=== PATIENT | female | born 1970 | race Caucasian/White ===

== ENCOUNTER → 2018-07-14 | Outpatient (CLI) | payer MEDICARE, OTHER ==
[~2018-07-14] MED LIST: CALCITROL PO; GABA300C10 PO; LAMO200T2 PO; OXYC-307 PO
[2018-07-14 11:37] LABS: ALBUMIN 3.3 g/dL (3.4-5.0); ANION GAP 8 mmol/L (5-15); CALCIUM 8.1 mg/dL (8.5-10.1); CHLORIDE 103 mmol/L (98-107)
[2018-07-14 11:41] LABS: ALANINE AMINOTRANSFERASE 17 U/L (12-78); ALKALINE PHOSPHATASE 100 U/L (45-117); BILIRUBIN,TOTAL 0.5 mg/dL (0.2-1.0); CREATININE 2.92 mg/dL (0.55-1.02); TOTAL PROTEIN 8.9 g/dL (6.4-8.2)
[2018-07-14 12:26] LABS: BASOPHILS # (AUTO) 0.02 x10^3/uL (0-0.1); BASOPHILS % (AUTO) 0 % (0-1); EOSINOPHILS # (AUTO) 0.14 x10^3/uL (0-0.4); EOSINOPHILS % (AUTO) 3 % (1-7); LYMPHOCYTES # (AUTO) 1.02 x10^3/uL (1-3.4); LYMPHOCYTES % (AUTO) 17 % (22-44); MD NO; MEAN CORPUSCULAR HEMOGLOBIN 31.8 pg (27.0-34.8); MEAN CORPUSCULAR HGB CONC 32.9 g/dL (32.4-35.8); MEAN CORPUSCULAR VOLUME 96.8 fL (80-100); MEAN PLATELET VOLUME 8.8 fL (7.4-10.4); MONOCYTES # (AUTO) 0.49 x10^3/uL (0.2-0.8); MONOCYTES % (AUTO) 8 % (2-9); NEUTROPHILS # (AUTO) 4.16 x10^3/uL (1.8-6.8); NEUTROPHILS % (AUTO) 71 % (42-75); PLATELET COUNT 161 x10^3/uL (130-400); RED BLOOD COUNT 3.33 x10^6/uL (3.82-5.3); RED CELL DISTRIBUTION WIDTH 18.5 % (9.6-15.2)
[2018-07-14 12:38] LABS: INTERNATIONAL NORMALIZED RATIO 0.98 (0.93-1.1); PROTHROMBIN TIME 10.1 Seconds (9.6-11.5)
== END | disposition home or self-care (01) ==
LOC: STAR 10:18
PROVIDERS: ATTEND Surgery
DX: Z01.812 Encounter for preprocedural laboratory examination (principal); Z88.0 Allergy status to penicillin; Z88.1 Allergy status to other antibiotic agents
CPT/HCPCS: 36415; 80053; 85025; 85610; 85730; 93005

== ENCOUNTER 2018-07-18 08:31 | Day surgery (SDC) | payer MEDICARE, OTHER ==
[~2018-07-18] VITALS: Ht 172.7 cm; Wt 72.0 kg
[2018-07-18 08:45] VITALS: BP 131/77
[2018-07-18] MEDS ORDERED: BUPIVACAINE/PF-EPI 0.5% 1:200K ONE (09:54)
[2018-07-18] MEDS ORDERED: THROMBIN 5,000 UNIT VIAL TP ONE (09:55)
[2018-07-18] MEDS ORDERED: HEPARIN 1,000 UNITS/ML, 10ML ONE (09:55)
[2018-07-18] MEDS ORDERED: FENTANYL PF 100 MCG/2ML ONE (10:32)
[2018-07-18] MEDS ORDERED: MIDAZOLAM 1 MG/ML, 2ML ONE (10:32)
[2018-07-18] MEDS ORDERED: ONDANSETRON 2MG/ML, 2ML ONE (10:34)
[2018-07-18] MEDS ORDERED: PROPOFOL 10 MG/ML, 20ML ONE (10:34)
[2018-07-18] MEDS ORDERED: CEFAZOLIN 1,000 MG ONE (10:34)
[2018-07-18] MEDS ORDERED: DEXAMETHASONE 4 MG/ML, 1ML ONE (10:46)
[2018-07-18] MEDS ORDERED: EPHEDRINE 50 MG/ML, 1ML ONE ×2 (10:57)
[2018-07-18] MEDS ORDERED: FENTANYL PF 100 MCG/2ML IV PRN (11:00)
[2018-07-18] MEDS ORDERED: ONDANSETRON 2MG/ML, 2ML IV PRN (11:00)
[2018-07-18] MEDS ORDERED: MEPERIDINE/PF 25MG/0.5ML IVPush PRN (11:00)
[2018-07-18] MEDS ORDERED: ONDANSETRON ODT 8 MG PO PRN (11:00)
[2018-07-18] MEDS ORDERED: hydrALAzine 20 MG/ML, 1ML IV PRN (11:00)
[2018-07-18] MEDS ORDERED: LORazepam 2 MG/ML, 1ML IVPush PRN (11:00)
[2018-07-18] MEDS ORDERED: PROMETHAZINE 25 MG/ML, 1ML IV PRN (11:00)
[2018-07-18] MEDS ORDERED: ALBUTEROL SULFATE 2.5 MG/3 ML NPPB PRN (11:00)
[2018-07-18] MEDS ORDERED: MIDAZOLAM 1 MG/ML, 2ML IV PRN (11:00)
[2018-07-18] MEDS ORDERED: MORPHINE SULFATE 4 MG/ML, 1ML IVPush PRN (11:00)
[2018-07-18] MEDS ORDERED: ACETAMINOPHEN 325 MG TABLET PO PRN (11:00)
[2018-07-18] MEDS ORDERED: HYDROmorphone 1 MG/ML, 1ML IV PRN (11:00)
[2018-07-18] MEDS ORDERED: OXYcodone 5 MG/5 ML ORAL.SOL UDC PO PRN (11:00)
[2018-07-18] MEDS ORDERED: EPHEDRINE 50 MG/ML, 1ML IVPush PRN (11:00)
[2018-07-18] MEDS ORDERED: PROMETHAZINE 12.5 MG SUPP PR PRN (11:00)
[2018-07-18] MEDS ORDERED: LABETALOL 5MG/ML, 20ML IV PRN (11:00)
[2018-07-18] MEDS ORDERED: OXYcodone 5 MG/5 ML ORAL.SOL UDC ONE (12:14)
[2018-07-18 13:17] VITALS: BP 156/77
== END 2018-07-18 16:35 | disposition home or self-care (01) ==
LOC: 4NOR 08:31 → OR 08:31
PROVIDERS: ATTEND Surgery
DX: I12.0 Hypertensive chronic kidney disease with stage 5 chronic kidney disease or end stage renal disease (principal); N18.6 End stage renal disease; J44.9 Chronic obstructive pulmonary disease, unspecified; E03.9 Hypothyroidism, unspecified; Z88.0 Allergy status to penicillin; Z88.8 Allergy status to other drugs, medicaments and biological substances; D64.9 Anemia, unspecified; F41.9 Anxiety disorder, unspecified; F32.9 Major depressive disorder, single episode, unspecified; F17.210 Nicotine dependence, cigarettes, uncomplicated; E89.0 Postprocedural hypothyroidism; Z90.49 Acquired absence of other specified parts of digestive tract; Z98.890 Other specified postprocedural states; Z90.710 Acquired absence of both cervix and uterus; Z93.3 Colostomy status
CPT/HCPCS: 36415; 36821; 84132; J0690; J1100; J1644; J2250; J2405; J2704; J3010; G0378

== ENCOUNTER 2018-08-07 14:27 | Observation (INO) | payer MEDICARE, OTHER ==
[2018-08-06 12:54] LABS: BASOPHILS # (AUTO) 0.02 x10^3/uL (0-0.1); BASOPHILS % (AUTO) 0 % (0-1); EOSINOPHILS # (AUTO) 0.14 x10^3/uL (0-0.4); EOSINOPHILS % (AUTO) 2 % (1-7); LYMPHOCYTES # (AUTO) 1.13 x10^3/uL (1-3.4); LYMPHOCYTES % (AUTO) 19 % (22-44); MD NO; MEAN CORPUSCULAR HEMOGLOBIN 32.3 pg (27.0-34.8); MEAN CORPUSCULAR HGB CONC 33.7 g/dL (32.4-35.8); MEAN CORPUSCULAR VOLUME 95.7 fL (80-100); MEAN PLATELET VOLUME 8.2 fL (7.4-10.4); MONOCYTES # (AUTO) 0.41 x10^3/uL (0.2-0.8); MONOCYTES % (AUTO) 7 % (2-9); NEUTROPHILS # (AUTO) 4.14 x10^3/uL (1.8-6.8); NEUTROPHILS % (AUTO) 71 % (42-75); PLATELET COUNT 149 x10^3/uL (130-400); RED BLOOD COUNT 3.85 x10^6/uL (3.82-5.3); RED CELL DISTRIBUTION WIDTH 17.9 % (9.6-15.2)
[2018-08-06 13:08] LABS: ANION GAP 9 mmol/L (5-15); CALCIUM 9.1 mg/dL (8.5-10.1); CHLORIDE 104 mmol/L (98-107); CREATININE 2.95 mg/dL (0.55-1.02)
[~2018-08-07] VITALS: Ht 172.7 cm; Wt 74.0 kg
[~2018-08-07 14:27] MED LIST changes: +CALC0.5C9 PO; +CEFAZOLIN 1,000 MG ONE; +DEXAMETHASONE 4 MG/ML, 1ML ONE; +DOCU-180 PO; +DOXY100C2 PO; +GUAI200T3 PO; +ONDANSETRON 2MG/ML, 2ML ONE; +PROPOFOL 10 MG/ML, 20ML ONE; +ROCURONIUM 10MG/ML,5ML ONE
[2018-08-07 14:52] VITALS: BP 122/80
[2018-08-07] MEDS ORDERED: SODIUM CHLORIDE 0.9% 1,000 ML IV SCH (14:58)
[2018-08-07] MEDS ORDERED: PROTAMINE SULFATE 10 MG/ML, 5ML ONE (16:23)
[2018-08-07] MEDS ORDERED: HEPARIN 1,000 UNITS/ML, 10ML ONE (16:23)
[2018-08-07] MEDS ORDERED: SODIUM BICARBONATE 1 MEQ/ML, 50ML VIAL ONE (16:23)
[2018-08-07] MEDS ORDERED: BUPIVACAINE/PF-EPI 0.5% 1:200K ONE (16:23)
[2018-08-07] MEDS ORDERED: LIDOCAINE/MPF 2%-EPI 1:200K, 20 ML ONE (16:23)
[2018-08-07] MEDS ORDERED: MIDAZOLAM 1 MG/ML, 2ML ONE (16:26)
[2018-08-07] MEDS ORDERED: FENTANYL PF 100 MCG/2ML ONE ×2 (16:26→19:37)
[2018-08-07] MEDS ORDERED: THROMBIN 20,000 UNIT VIAL TP ONE ×2 (17:39→17:49)
[2018-08-07] MEDS ORDERED: OXYcodone 5 MG/5 ML ORAL.SOL UDC PO PRN (18:00)
[2018-08-07] MEDS ORDERED: HYDROmorphone 1 MG/ML, 1ML IV PRN (18:00)
[2018-08-07] MEDS ORDERED: ALBUTEROL SULFATE 2.5 MG/3 ML NPPB PRN (18:00)
[2018-08-07] MEDS ORDERED: LABETALOL 5MG/ML, 20ML IV PRN (18:00)
[2018-08-07] MEDS ORDERED: hydrALAzine 20 MG/ML, 1ML IV PRN (18:00)
[2018-08-07] MEDS ORDERED: HALOPERIDOL 5 MG/ML IV PRN (18:00)
[2018-08-07] MEDS ORDERED: ACETAMINOPHEN 650 MG/20.3 ML UDC PO PRN (19:30)
[2018-08-07] MEDS ORDERED: ONDANSETRON 2MG/ML, 2ML IVPush PRN (19:30)
[2018-08-07] MEDS ORDERED: OXYcodone 5 MG/5 ML ORAL.SOL UDC ONE (19:37)
[2018-08-07] MEDS: FENTANYL PF 100 MCG/2ML IV PRN ×2 (19:42→19:53)
[2018-08-07 20:31] VITALS: BP 97/59
[2018-08-07] MEDS: morphine SULFATE 10 MG/ML, 1ML IV PRN ×2 (21:01→21:42)
[2018-08-07] MEDS: SODIUM CHLORIDE FLUSH 10ML SYR IVF SCH (21:02)
[2018-08-07 21:30] VITALS: BP 99/55
[2018-08-08] VITALS (7 sets, daily range): BP systolic 100–163; BP diastolic 54–100
[2018-08-08] MEDS: morphine SULFATE 10 MG/ML, 1ML IV PRN ×5 (01:43→14:01)
[2018-08-08] MEDS: SODIUM CHLORIDE FLUSH 10ML SYR IVF SCH (09:00)
== END 2018-08-08 16:51 | disposition home or self-care (01) ==
LOC: OR 14:27 → ORIP 20:35 → 4WST 20:38
PROVIDERS: ADMIT Surgery; ATTEND Surgery
DX: T82.868A Thrombosis due to vascular prosthetic devices, implants and grafts, initial encounter (principal); N18.6 End stage renal disease; I12.0 Hypertensive chronic kidney disease with stage 5 chronic kidney disease or end stage renal disease; D63.1 Anemia in chronic kidney disease; F43.10 Post-traumatic stress disorder, unspecified; E21.3 Hyperparathyroidism, unspecified; N25.0 Renal osteodystrophy; N25.81 Secondary hyperparathyroidism of renal origin; Y83.2 Surgical operation with anastomosis, bypass or graft as the cause of abnormal reaction of the patient, or of later complication, without mention of misadventure at the time of the procedure; Z86.718 Personal history of other venous thrombosis and embolism; Z90.710 Acquired absence of both cervix and uterus; Z99.2 Dependence on renal dialysis
CPT/HCPCS: 36415; 36830; 80048; 85025; 93005; 96374; 96376; C1729; C1757; C1760; C1768; G0378; J0690; J1100; J1644; J2250; J2270; J2405; J2704; J2720; J3010; J7030; J3490

== ENCOUNTER 2018-08-10 14:13 | Emergency (ER) | payer MEDICARE, OTHER ==
[~2018-08-10 14:13] MED LIST changes: -CEFAZOLIN 1,000 MG ONE; -DEXAMETHASONE 4 MG/ML, 1ML ONE; -ONDANSETRON 2MG/ML, 2ML ONE; -PROPOFOL 10 MG/ML, 20ML ONE; -ROCURONIUM 10MG/ML,5ML ONE
[2018-08-10 14:54] LABS: BASOPHILS # (AUTO) 0.02 x10^3/uL (0-0.1); BASOPHILS % (AUTO) 0 % (0-1); EOSINOPHILS # (AUTO) 0.13 x10^3/uL (0-0.4); EOSINOPHILS % (AUTO) 2 % (1-7); LYMPHOCYTES # (AUTO) 1.37 x10^3/uL (1-3.4); LYMPHOCYTES % (AUTO) 22 % (22-44); MD NO; MEAN CORPUSCULAR HEMOGLOBIN 32.6 pg (27.0-34.8); MEAN CORPUSCULAR HGB CONC 33.6 g/dL (32.4-35.8); MEAN CORPUSCULAR VOLUME 97.1 fL (80-100); MEAN PLATELET VOLUME 8.5 fL (7.4-10.4); MONOCYTES # (AUTO) 0.39 x10^3/uL (0.2-0.8); MONOCYTES % (AUTO) 6 % (2-9); NEUTROPHILS # (AUTO) 4.36 x10^3/uL (1.8-6.8); NEUTROPHILS % (AUTO) 69 % (42-75); PLATELET COUNT 158 x10^3/uL (130-400); RED BLOOD COUNT 2.94 x10^6/uL (3.82-5.3); RED CELL DISTRIBUTION WIDTH 17.5 % (9.6-15.2)
[2018-08-10 14:59] LABS: INTERNATIONAL NORMALIZED RATIO 0.93 (0.93-1.1); PROTHROMBIN TIME 9.7 Seconds (9.6-11.5)
[2018-08-10 15:01] LABS: ALANINE AMINOTRANSFERASE 13 U/L (12-78); ALBUMIN 3.3 g/dL (3.4-5.0); ANION GAP 8 mmol/L (5-15); CALCIUM 8.1 mg/dL (8.5-10.1); CHLORIDE 107 mmol/L (98-107); CREATININE 4.16 mg/dL (0.55-1.02)
[2018-08-10 15:03] LABS: ALKALINE PHOSPHATASE 102 U/L (45-117); BILIRUBIN,TOTAL 0.3 mg/dL (0.2-1.0); TOTAL PROTEIN 8.4 g/dL (6.4-8.2)
[2018-08-10] MEDS ORDERED: ALBU6.7H PO (15:21)
[2018-08-10 17:59] VITALS: BP 132/88
== END 2018-08-10 18:12 | disposition home or self-care (01) ==
LOC: ED 15:12
DX: R50.82 Postprocedural fever (principal); N18.9 Chronic kidney disease, unspecified; Z99.2 Dependence on renal dialysis
CPT/HCPCS: 36415; 80053; 83605; 84145; 85025; 85610; 85730; 87040; 99284

== ENCOUNTER 2018-10-14 08:07 | Day surgery (SDC) | payer MEDICARE ==
[2018-10-12 10:06] LABS: BASOPHILS # (AUTO) 0.02 x10^3/uL (0-0.1); BASOPHILS % (AUTO) 0 % (0-1); EOSINOPHILS # (AUTO) 0.16 x10^3/uL (0-0.4); EOSINOPHILS % (AUTO) 3 % (1-7); LYMPHOCYTES # (AUTO) 1.47 x10^3/uL (1-3.4); LYMPHOCYTES % (AUTO) 25 % (22-44); MD NO; MEAN CORPUSCULAR HEMOGLOBIN 34.1 pg (27.0-34.8); MEAN CORPUSCULAR HGB CONC 34.4 g/dL (32.4-35.8); MEAN CORPUSCULAR VOLUME 99.3 fL (80-100); MEAN PLATELET VOLUME 8.2 fL (7.4-10.4); MONOCYTES # (AUTO) 0.43 x10^3/uL (0.2-0.8); MONOCYTES % (AUTO) 8 % (2-9); NEUTROPHILS # (AUTO) 3.71 x10^3/uL (1.8-6.8); NEUTROPHILS % (AUTO) 64 % (42-75); PLATELET COUNT 179 x10^3/uL (130-400); RED CELL DISTRIBUTION WIDTH 14.4 % (9.6-15.2)
[2018-10-12 10:11] LABS: PROTHROMBIN TIME 10.6 Seconds (9.6-11.5)
[2018-10-12 10:13] LABS: ALBUMIN 4.2 g/dL (3.4-5.0); ANION GAP 9 mmol/L (5-15); CHLORIDE 102 mmol/L (98-107)
[2018-10-12 10:17] LABS: ALANINE AMINOTRANSFERASE 28 U/L (12-78); ALKALINE PHOSPHATASE 80 U/L (45-117); BILIRUBIN,TOTAL 0.4 mg/dL (0.2-1.0); CREATININE 4.75 mg/dL (0.55-1.02); TOTAL PROTEIN 9.4 g/dL (6.4-8.2)
[~2018-10-14] VITALS: Ht 172.7 cm; Wt 71.1 kg
[~2018-10-14 08:07] MED LIST changes: +ALBU6.7H PO; +CBD INH; +CBD PO; +FERR325T18 PO; +HEPARIN 1,000 UNITS/ML, 10ML ONE; +NALO25TA PO; +OMEP-110 PO; +PROM25TA10 PO; +THROMBIN 5,000 UNIT VIAL TP ONE
[2018-10-14] MEDS ORDERED: SODIUM CHLORIDE 0.9% 1,000 ML IV SCH (08:56)
[2018-10-14 08:58] VITALS: BP 149/87
[2018-10-14] MEDS ORDERED: LIDOCAINE-MPF 1%, 2ML INFIL ONE (09:00)
[2018-10-14] MEDS ORDERED: PROTAMINE SULFATE 10 MG/ML, 5ML ONE (09:29)
[2018-10-14] MEDS ORDERED: FENTANYL PF 250 MCG/5ML ONE (09:47)
[2018-10-14] MEDS ORDERED: MIDAZOLAM 1 MG/ML, 2ML ONE ×2 (10:03→13:01)
[2018-10-14] MEDS ORDERED: VANCOMYCIN 500 MG ONE (10:12)
[2018-10-14 10:24] LABS: ANION GAP 9 mmol/L (5-15); CALCIUM 8.2 mg/dL (8.5-10.1); CHLORIDE 103 mmol/L (98-107)
[2018-10-14 10:25] LABS: CREATININE 4.72 mg/dL (0.55-1.02)
[2018-10-14] MEDS ORDERED: VASOPRESSIN 20 UNIT/ML, 1ML ONE (10:29)
[2018-10-14] MEDS ORDERED: ONDANSETRON 2MG/ML, 2ML ONE (10:45)
[2018-10-14] MEDS ORDERED: ROCURONIUM 10MG/ML,5ML ONE (10:45)
[2018-10-14] MEDS ORDERED: PROPOFOL 10 MG/ML, 20ML ONE ×2 (10:45)
[2018-10-14] MEDS ORDERED: FENTANYL PF 100 MCG/2ML ONE ×3 (11:44→13:19)
[2018-10-14] MEDS ORDERED: EPHEDRINE 50 MG/ML, 1ML IM PRN (12:00)
[2018-10-14] MEDS ORDERED: MIDAZOLAM 1 MG/ML, 2ML IV PRN (12:00)
[2018-10-14] MEDS ORDERED: ACETAMINOPHEN 325 MG TABLET PO PRN (12:00)
[2018-10-14] MEDS ORDERED: EPHEDRINE 50 MG/ML, 1ML IVPush PRN (12:00)
[2018-10-14] MEDS ORDERED: DIPHENHYDRAMINE 50 MG/ML, 1ML IVPush PRN (12:00)
[2018-10-14] MEDS ORDERED: ONDANSETRON ODT 8 MG PO PRN (12:00)
[2018-10-14] MEDS ORDERED: OXYcodone 5 MG/5 ML ORAL.SOL UDC ONE (12:53)
[2018-10-14] MEDS: FENTANYL PF 100 MCG/2ML IV PRN ×3 (12:58→13:26)
[2018-10-14] MEDS: OXYcodone 5 MG/5 ML ORAL.SOL UDC PO PRN ×2 (12:58→16:14)
[2018-10-14] MEDS ORDERED: morphine SULFATE 10 MG/ML, 1ML ONE ×2 (13:00→13:19)
[2018-10-14] MEDS ORDERED: morphine SULFATE 10 MG/ML, 1ML IV PRN (13:00)
[2018-10-14] MEDS: MORPHINE SULFATE 4 MG/ML, 1ML IVPush PRN ×5 (13:03→13:34)
[2018-10-14] MEDS ORDERED: ONDANSETRON ODT 8 MG ONE (13:48)
[2018-10-14] MEDS ORDERED: SODIUM CHLORIDE FLUSH 10ML SYR IVF SCH (21:00)
== END 2018-10-14 17:30 | disposition home or self-care (01) ==
LOC: OUT 08:07
PROVIDERS: ATTEND Surgery
DX: N18.5 Chronic kidney disease, stage 5 (principal); F41.9 Anxiety disorder, unspecified; F32.9 Major depressive disorder, single episode, unspecified; I12.0 Hypertensive chronic kidney disease with stage 5 chronic kidney disease or end stage renal disease; Z99.2 Dependence on renal dialysis; Z79.899 Other long term (current) drug therapy; Z98.890 Other specified postprocedural states; Z90.710 Acquired absence of both cervix and uterus; Z90.49 Acquired absence of other specified parts of digestive tract; Z88.1 Allergy status to other antibiotic agents; Z88.0 Allergy status to penicillin; Z93.3 Colostomy status; Z87.891 Personal history of nicotine dependence
CPT/HCPCS: 36415; 36821; 71046; 80048; 80053; 85025; 85610; 85730; 93005; J1644; J2250; J2405; J2704; J3010; J3370; J3490; J7030; Q0162; J2720

== ENCOUNTER → 2019-03-04 | Outpatient (CLI) | payer MEDICARE ==
[~2019-03-04] MED LIST changes: -HEPARIN 1,000 UNITS/ML, 10ML ONE; -THROMBIN 5,000 UNIT VIAL TP ONE
[2019-03-04 16:02] LABS: BASOPHILS # (AUTO) 0.01 x10^3/uL (0-0.1); BASOPHILS % (AUTO) 0 % (0-1); EOSINOPHILS # (AUTO) 0.06 x10^3/uL (0-0.4); EOSINOPHILS % (AUTO) 1 % (1-7); LYMPHOCYTES # (AUTO) 1.44 x10^3/uL (1-3.4); LYMPHOCYTES % (AUTO) 31 % (22-44); MD NO; MEAN CORPUSCULAR HEMOGLOBIN 34.7 pg (27.0-34.8); MEAN CORPUSCULAR HGB CONC 34.3 g/dL (32.4-35.8); MEAN CORPUSCULAR VOLUME 101.2 fL (80-100); MEAN PLATELET VOLUME 7.7 fL (7.4-10.4); MONOCYTES # (AUTO) 0.31 x10^3/uL (0.2-0.8); MONOCYTES % (AUTO) 7 % (2-9); NEUTROPHILS # (AUTO) 2.85 x10^3/uL (1.8-6.8); NEUTROPHILS % (AUTO) 61 % (42-75); PLATELET COUNT 191 x10^3/uL (130-400); RED BLOOD COUNT 2.94 x10^6/uL (3.82-5.3); RED CELL DISTRIBUTION WIDTH 15.2 % (9.6-15.2)
[2019-03-04 16:15] LABS: ALANINE AMINOTRANSFERASE 36 U/L (12-78); ANION GAP 5 mmol/L (5-15); CALCIUM 7.6 mg/dL (8.5-10.1); CHLORIDE 107 mmol/L (98-107); CREATININE 3.16 mg/dL (0.55-1.02)
[2019-03-04 16:18] LABS: ALKALINE PHOSPHATASE 82 U/L (45-117); BILIRUBIN,TOTAL 0.2 mg/dL (0.2-1.0); TOTAL PROTEIN 8.3 g/dL (6.4-8.2)
[2019-03-04 16:37] LABS: INTERNATIONAL NORMALIZED RATIO 0.95 (0.93-1.1)
== END | disposition home or self-care (01) ==
LOC: STAR 15:11
PROVIDERS: ATTEND Internal Medicine
DX: Z01.818 Encounter for other preprocedural examination (principal); I44.0 Atrioventricular block, first degree; K21.0 Gastro-esophageal reflux disease with esophagitis; D64.9 Anemia, unspecified; Z88.1 Allergy status to other antibiotic agents; Z88.0 Allergy status to penicillin
CPT/HCPCS: 36415; 80053; 85025; 85610; 85730; 93005

== ENCOUNTER 2019-03-11 09:46 | Day surgery (SDC) | payer MEDICARE ==
[~2019-03-11] VITALS: Ht 172.7 cm; Wt 78.0 kg
[2019-03-11] MEDS ORDERED: SODIUM CHLORIDE 0.9% 1,000 ML IV SCH (10:25)
[2019-03-11 10:27] VITALS: BP 133/75
[2019-03-11] MEDS ORDERED: PROPOFOL 10 MG/ML, 50ML ONE (15:26)
== END 2019-03-11 14:00 | disposition home or self-care (01) ==
LOC: OUT 09:46
PROVIDERS: ATTEND Internal Medicine
DX: K29.50 Unspecified chronic gastritis without bleeding (principal); K52.832 Lymphocytic colitis; F31.9 Bipolar disorder, unspecified; D64.9 Anemia, unspecified; I95.9 Hypotension, unspecified; Z98.890 Other specified postprocedural states; Z93.3 Colostomy status; Z90.710 Acquired absence of both cervix and uterus; Z98.0 Intestinal bypass and anastomosis status
CPT/HCPCS: 36415; 43239; 45380; 80047; 88305; J2704

== ENCOUNTER 2019-06-08 14:24 | Outpatient (CLI) | payer MEDICARE, OTHER | END 2019-06-08 23:59 | disposition home or self-care (01) | LOC: STAR 14:24 | PROVIDERS: ATTEND Surgery | DX: Z01.818 Encounter for other preprocedural examination (principal); T82.858D Stenosis of other vascular prosthetic devices, implants and grafts, subsequent encounter | CPT/HCPCS: 36415; 80053; 85025; 85610; 85730; 93005 ==

== ENCOUNTER 2019-06-17 13:55 | Day surgery (SDC) | payer MEDICARE, OTHER ==
[~2019-06-17] VITALS: Ht 172.7 cm; Wt 87.9 kg
[~2019-06-17 13:55] MED LIST changes: -ALBU6.7H PO; +ALBU6.7H8 PO; +CALC0.25 PO; -GUAI200T3 PO; +GUAI200T37 PO; +SEVE800T7 PO; +[UNRECOGNIZED DRUG - OTHER] PO; +[UNRECOGNIZED DRUG - REMARK] INH; +tums PO
[2019-06-17] MEDS ORDERED: LACTATED RINGERS 1,000 ML IV SCH (14:06)
[2019-06-17 14:21] VITALS: BP 151/86
[2019-06-17] MEDS ORDERED: SODIUM CHLORIDE 0.9% 1,000 ML IV SCH (14:26)
[2019-06-17] MEDS ORDERED: OXYcodone IR 5MG TABLET PO ONE (14:30)
[2019-06-17] MEDS ORDERED: GABAPENTIN 300 MG CAPSULE PO ONE (14:30)
[2019-06-17] MEDS ORDERED: SCOPOLAMINE PATCH, 1.5MG PATCH.TD72 TD ONE (14:30)
[2019-06-17] MEDS ORDERED: MIDAZOLAM 1 MG/ML, 2ML ONE (16:03)
[2019-06-17] MEDS ORDERED: DEXAMETHASONE 4 MG/ML, 1ML ONE (16:03)
[2019-06-17] MEDS ORDERED: FENTANYL PF 250 MCG/5ML ONE (16:03)
[2019-06-17] MEDS ORDERED: ROCURONIUM 10MG/ML,5ML ONE (16:07)
[2019-06-17] MEDS ORDERED: SUCCINYLCHOLINE 20 MG/ML, 10ML ONE (16:09)
[2019-06-17] MEDS ORDERED: ONDANSETRON 2MG/ML, 2ML ONE (16:11)
[2019-06-17] MEDS ORDERED: HEPARIN 1,000 UNITS/ML, 10ML ONE (16:24)
[2019-06-17] MEDS ORDERED: THROMBIN 5,000 UNIT VIAL TP ONE (16:24)
[2019-06-17] MEDS ORDERED: BUPIVACAINE/PF-EPI 0.5% 1:200K ONE (16:24)
[2019-06-17] MEDS ORDERED: EPHEDRINE 50 MG/ML, 1ML ONE (16:58)
[2019-06-17] MEDS ORDERED: ONDANSETRON 2MG/ML, 2ML IV PRN (17:30)
[2019-06-17] MEDS ORDERED: PROMETHAZINE 25 MG/ML, 1ML IV PRN (17:30)
[2019-06-17] MEDS ORDERED: ALBUTEROL SULFATE 2.5 MG/3 ML NPPB PRN (17:30)
[2019-06-17] MEDS ORDERED: MORPHINE SULFATE 4 MG/ML, 1ML IVPush PRN (17:30)
[2019-06-17] MEDS ORDERED: hydrALAzine 20 MG/ML, 1ML IV PRN (17:30)
[2019-06-17] MEDS ORDERED: HALOPERIDOL 5 MG/ML IV PRN (17:30)
[2019-06-17] MEDS ORDERED: MIDAZOLAM 1 MG/ML, 2ML IV PRN (17:30)
[2019-06-17] MEDS ORDERED: EPHEDRINE 50 MG/ML, 1ML IVPush PRN (17:30)
[2019-06-17] MEDS ORDERED: OXYcodone 5 MG/5 ML ORAL.SOL UDC PO PRN (17:30)
[2019-06-17] MEDS ORDERED: LABETALOL 5MG/ML, 20ML IV PRN (17:30)
[2019-06-17] MEDS ORDERED: HYDROmorphone 2 MG/ML, 1ML IVPush PRN (17:30)
[2019-06-17] MEDS ORDERED: DIAZEPAM 5 MG/ML, 2ML IVPush PRN (17:30)
[2019-06-17] MEDS ORDERED: PROMETHAZINE 12.5 MG SUPP PR PRN (17:30)
[2019-06-17] MEDS ORDERED: ONDANSETRON ODT 8 MG PO PRN (17:30)
[2019-06-17] MEDS ORDERED: FENTANYL PF 100 MCG/2ML ONE (17:51)
[2019-06-17] MEDS: FENTANYL PF 100 MCG/2ML IV PRN ×2 (17:52→18:05)
[2019-06-17] MEDS ORDERED: MEPERIDINE/PF 25MG/ML,1ML ONE ×2 (18:00→18:15)
[2019-06-17] MEDS: MEPERIDINE/PF 25MG/0.5ML IVPush PRN ×2 (18:01→18:20)
[2019-08-11] MEDS ORDERED: MIDO5TAB4 PO (02:18)
== END 2019-06-17 19:50 | disposition home or self-care (01) ==
LOC: OR 13:55 → 4NOR 19:06 → OR 19:50
PROVIDERS: ATTEND Surgery
DX: T82.590A Other mechanical complication of surgically created arteriovenous fistula, initial encounter (principal); I12.0 Hypertensive chronic kidney disease with stage 5 chronic kidney disease or end stage renal disease; N18.6 End stage renal disease; D63.1 Anemia in chronic kidney disease; I47.1 Supraventricular tachycardia; F31.9 Bipolar disorder, unspecified; E03.9 Hypothyroidism, unspecified; E66.3 Overweight; F17.210 Nicotine dependence, cigarettes, uncomplicated; Z68.26 Body mass index [BMI] 26.0-26.9, adult; Z79.899 Other long term (current) drug therapy; Z88.0 Allergy status to penicillin; Z88.8 Allergy status to other drugs, medicaments and biological substances; Z90.710 Acquired absence of both cervix and uterus; Z90.49 Acquired absence of other specified parts of digestive tract; Z84.1 Family history of disorders of kidney and ureter; Z83.49 Family history of other endocrine, nutritional and metabolic diseases; Y83.8 Other surgical procedures as the cause of abnormal reaction of the patient, or of later complication, without mention of misadventure at the time of the procedure
CPT/HCPCS: 36832; J0330; J1100; J1644; J2175; J2250; J2405; J3010; J7120; G0378

== ENCOUNTER → 2019-09-16 | Outpatient (CLI) | payer MEDICARE, OTHER ==
[~2019-09-16] MED LIST changes: +MIDO5TAB4 PO
[2019-09-16 10:20] LABS: BASOPHILS # (AUTO) 0.02 x10^3/uL (0-0.1); BASOPHILS % (AUTO) 0 % (0-1); EOSINOPHILS # (AUTO) 0.18 x10^3/uL (0-0.4); EOSINOPHILS % (AUTO) 3 % (1-7); LYMPHOCYTES # (AUTO) 1.37 x10^3/uL (1-3.4); LYMPHOCYTES % (AUTO) 26 % (22-44); MD NO; MEAN CORPUSCULAR HEMOGLOBIN 34.7 pg (27.0-34.8); MEAN CORPUSCULAR HGB CONC 33.8 g/dL (32.4-35.8); MEAN CORPUSCULAR VOLUME 102.9 fL (80-100); MEAN PLATELET VOLUME 8.2 fL (7.4-10.4); MONOCYTES # (AUTO) 0.29 x10^3/uL (0.2-0.8); MONOCYTES % (AUTO) 5 % (2-9); NEUTROPHILS # (AUTO) 3.47 x10^3/uL (1.8-6.8); NEUTROPHILS % (AUTO) 65 % (42-75); PLATELET COUNT 154 x10^3/uL (130-400); RED BLOOD COUNT 3.24 x10^6/uL (3.82-5.3); RED CELL DISTRIBUTION WIDTH 13.5 % (9.6-15.2)
[2019-09-16 10:28] LABS: INTERNATIONAL NORMALIZED RATIO 0.96 (0.93-1.1); PROTHROMBIN TIME 10.1 Seconds (9.6-11.5)
[2019-09-16 10:31] LABS: ALBUMIN 4.3 g/dL (3.4-5.0); ANION GAP 12 mmol/L (5-15); CHLORIDE 106 mmol/L (98-107)
[2019-09-16 10:34] LABS: ALANINE AMINOTRANSFERASE 16 U/L (12-78); ALKALINE PHOSPHATASE 74 U/L (45-117); BILIRUBIN,TOTAL 0.3 mg/dL (0.2-1.0); CREATININE 7.57 mg/dL (0.55-1.02); TOTAL PROTEIN 9.4 g/dL (6.4-8.2)
== END | disposition home or self-care (01) ==
LOC: STAR 08:46
PROVIDERS: ATTEND Surgery
DX: Z01.818 Encounter for other preprocedural examination (principal); N18.6 End stage renal disease; R94.31 Abnormal electrocardiogram [ECG] [EKG]; Z99.2 Dependence on renal dialysis
CPT/HCPCS: 36415; 71046; 80053; 85025; 85610; 85730; 93005

== ENCOUNTER 2019-10-12 16:00 | Observation (INO) | payer MEDICARE ==
[~2019-10-12] VITALS: Ht 172.7 cm; Wt 93.3 kg
[~2019-10-12 16:00] MED LIST changes: +CIPR500T87 PO; +METR500T PO
--- NOTE | 2019-10-12 17:10 | NUR ---
PT HERE WITH C/O POSSIBLE R FEMORAL GRAFT FAILURE. PT STATES SHE WAS SENT FROM HER PRIMARY CARE OFFICE BECAUSE THEY "COULDN'T FEEL OR HEAR ANYTHING OVER THE GRAFT." PT STATES RECENTLY DISCHARGED ON 10/10 FOR GRAFT PLACEMENT ON 09/24. PT HAS EXTENSIVE MEDICAL HX. PT AAO X 4, NAD, ROOM AIR, DRESSED IN GOWN AND ATTACHED TO MONITOR. CALL LIGHT WITHIN REACH.
--- NOTE | 2019-10-12 17:15 | NUR ---
MED REC COMPLETED. PULSE PALPABLE IN PEDAL, POST TIBIAL, AND POPLITEAL.
[2019-10-12 17:18] LABS: MEAN CORPUSCULAR HEMOGLOBIN 32.2 pg (27.0-34.8); MEAN CORPUSCULAR HGB CONC 33.1 g/dL (32.4-35.8); MEAN CORPUSCULAR VOLUME 97.2 fL (80-100); MEAN PLATELET VOLUME 8.1 fL (7.4-10.4); PLATELET COUNT 169 x10^3/uL (130-400); RED BLOOD COUNT 2.76 x10^6/uL (3.82-5.3)
[2019-10-12] MEDS ORDERED: MIDO5TAB9 PO (17:26)
[2019-10-12] MEDS ORDERED: SEVE800T8 PO (17:26)
[2019-10-12 17:32] LABS: ALKALINE PHOSPHATASE 71 U/L (45-117); BILIRUBIN,TOTAL 0.5 mg/dL (0.2-1.0); TOTAL PROTEIN 8.2 g/dL (6.4-8.2)
[2019-10-12 17:36] LABS: ALANINE AMINOTRANSFERASE 10 U/L (12-78); ALBUMIN 3.4 g/dL (3.4-5.0); ANION GAP 8 mmol/L (5-15); CALCIUM 8.8 mg/dL (8.5-10.1); CHLORIDE 101 mmol/L (98-107); CREATININE 4.19 mg/dL (0.55-1.02)
[2019-10-12 18:22] LABS: MD YES
[2019-10-12 18:24] LABS: BAND#(MANUAL) 0.72 x10^3/uL; BANDS%(MANUAL) 8 % (0-7); EOS#(MANUAL) 0.36 x10^3/uL (0.0-0.4); EOS% (MANUAL) 4 % (1-7); LYMPH#(MANUAL) 0.99 x10^3/uL (1-3.4); LYMPHS% (MANUAL) 11 % (22-44); MONOS#(MANUAL) 0.54 x10^3/uL (0.3-2.7); MONOS% (MANUAL) 6 % (2-9); SEG#(MANUAL) 5.76 x10^3/uL (1.8-6.8); SEGS% (MANUAL) 64 % (42-75)
[2019-10-12 18:25] LABS: ANISOCYTOSIS 1+; MICROCYTOSIS 1+; POLYCHROMASIA 1+
[2019-10-12 18:26] LABS: <PLATELET ESTIMATE> ADEQUATE; <PLT MORPHOLOGY> NORMAL PLT MORPH
[2019-10-12 18:28] LABS: METAMYELOCYTES# (MANUAL) 0.54 x10^3/uL (0-0); METAMYELOCYTES% (MANUAL) 6 % (0-1)
[2019-10-12 18:29] LABS: MYELOCYTES# (MANUAL) 0.09 x10^3/uL (0-0); MYELOCYTES% (MANUAL) 1 % (0-0)
[2019-10-12] MEDS ORDERED: POTASSIUM CHLORIDE 20 MEQ TAB.ER.PRT PO ONE (18:30)
[2019-10-12] MEDS ORDERED: SODIUM CHLORIDE FLUSH 10ML SYR IVF ONE (18:30)
[2019-10-12] MEDS ORDERED: POTASSIUM CHLORIDE 40 MEQ in SODIUM CHLORIDE 0.9% 500 ML IV ONE (18:30)
--- NOTE | 2019-10-12 18:34 | NUR ---
PIV ESTABLISHED BY THIS RN.
[2019-10-12] MEDS ORDERED: POTASSIUM CHLORIDE 20 MEQ PACKET ONE (19:04)
--- NOTE | 2019-10-12 19:17 | NUR ---
PT MEDICATED PER MAR.
--- NOTE | 2019-10-12 19:38 | NUR ---
REPORT GIVEN TO MALGORZATA ARNETT TO TRANSFER TO 492-2 WHEN ROOM CLEAN.
--- NOTE | 2019-10-12 19:52 | NUR ---
[facility] AT BEDSIDE.
--- NOTE | 2019-10-12 19:53 | NUR ---
CARDIOVASCULAR US CALLED REGARDING DELAY IN SCAN, NO ANSWER BUT CONFERENCE MANAGER NUMBER PROVIDED. THIS RN TO DISCUSS WITH ERP REGARDING NEED TO CALL IN ULTRASOUND STAFF.
[2019-10-12] MEDS ORDERED: ONDANSETRON ODT 4 MG PO PRN (20:00)
--- NOTE | 2019-10-12 20:03 | NUR ---
MD NOTIFIED ABOUT ULTRASOUND SPOUT WORKER STATUS, MD TO DISCUSS WITH ADMITTING PHYSICIAN REGARDING URGENCY OF STUDY. SPOUT WORKER NUMBER FOR CARDIOVASCULAR ULTRASOUND IS [phone] (LENIN).
--- NOTE | 2019-10-12 20:04 | NUR ---
PT EDUCATED ON PLAN OF CARE, EDUCATION PROVIDED REGARDING WHY STAFF HAS NOT NOTIFIED HER VASCULAR SURGEON, PT VERBALIZED UNDERSTANDING.
[2019-10-12] MEDS ORDERED: MIDODRINE 5 MG TABLET PO PRN (21:00)
[2019-10-12 21:11] VITALS: BP 138/79
[2019-10-12] MEDS: ONDANSETRON 2MG/ML, 2ML IVPush PRN (21:40)
[2019-10-12] MEDS: CALCITRIOL 0.25 MCG CAPSULE PO SCH (22:04)
[2019-10-12] MEDS: SEVELAMER CARBONATE 800MG TAB PO SCH (23:58)
[2019-10-13] MEDS ORDERED: OXYcodone/APAP 5/325MG TABLET PO PRN
[2019-10-13 01:29] VITALS: BP 116/75
[2019-10-13] MEDS: ONDANSETRON 2MG/ML, 2ML IVPush PRN ×2 (05:31→19:25)
[2019-10-13 05:50] LABS: MEAN CORPUSCULAR HEMOGLOBIN 31.3 pg (27.0-34.8); MEAN CORPUSCULAR HGB CONC 32.9 g/dL (32.4-35.8); MEAN CORPUSCULAR VOLUME 95.1 fL (80-100); MEAN PLATELET VOLUME 8.1 fL (7.4-10.4); PLATELET COUNT 175 x10^3/uL (130-400); RED BLOOD COUNT 2.87 x10^6/uL (3.82-5.3); RED CELL DISTRIBUTION WIDTH 16.9 % (9.6-15.2)
[2019-10-13 06:01] LABS: ALBUMIN 3.2 g/dL (3.4-5.0); ANION GAP 8 mmol/L (5-15); CALCIUM 8.4 mg/dL (8.5-10.1); CHLORIDE 107 mmol/L (98-107)
[2019-10-13 06:04] LABS: CREATININE 4.82 mg/dL (0.55-1.02)
[2019-10-13 06:05] LABS: ALANINE AMINOTRANSFERASE 11 U/L (12-78); ALKALINE PHOSPHATASE 69 U/L (45-117); BILIRUBIN,TOTAL 0.7 mg/dL (0.2-1.0)
[2019-10-13 06:26] LABS: MD YES
[2019-10-13 06:27] LABS: BAND#(MANUAL) 0.07 x10^3/uL; BANDS%(MANUAL) 1 % (0-7); EOS#(MANUAL) 0.22 x10^3/uL (0.0-0.4); EOS% (MANUAL) 3 % (1-7); LYMPH#(MANUAL) 0.89 x10^3/uL (1-3.4); LYMPHS% (MANUAL) 12 % (22-44); METAMYELOCYTES# (MANUAL) 0.22 x10^3/uL (0-0); METAMYELOCYTES% (MANUAL) 3 % (0-1); MYELOCYTES# (MANUAL) 0.15 x10^3/uL (0-0); MYELOCYTES% (MANUAL) 2 % (0-0); SEGS% (MANUAL) 74 % (42-75)
[2019-10-13 06:28] LABS: <PLATELET ESTIMATE> ADEQUATE; <PLT MORPHOLOGY> NORMAL PLT MORPH; ANISOCYTOSIS 1+; MICROCYTOSIS 1+; MONOS#(MANUAL) 0.37 x10^3/uL (0.3-2.7); MONOS% (MANUAL) 5 % (2-9); POLYCHROMASIA 1+; SEG#(MANUAL) 5.48 x10^3/uL (1.8-6.8)
[2019-10-13 07:44] VITALS: BP 154/90
[2019-10-13 09:14] LABS: CRYPTOSPORIDIUM ANTIGEN Negative (Negative)
[2019-10-13] MEDS: CALCITRIOL 0.25 MCG CAPSULE PO SCH ×2 (09:25→21:14)
[2019-10-13] MEDS: HYDROmorphone 2 MG/ML, 1ML IV PRN ×2 (09:25→19:25)
[2019-10-13] MEDS: SEVELAMER CARBONATE 800MG TAB PO SCH ×3 (09:25→21:14)
[2019-10-13 13:19] VITALS: BP 132/85
[2019-10-13 21:40] VITALS: BP 116/71
[2019-10-14 02:00] VITALS: BP 107/67
[2019-10-14] MEDS: HYDROmorphone 2 MG/ML, 1ML IV PRN ×4 (02:16→20:45)
[2019-10-14 07:28] LABS: BASOPHILS # (AUTO) 0.02 x10^3/uL (0-0.1); BASOPHILS % (AUTO) 0 % (0-1); EOSINOPHILS # (AUTO) 0.09 x10^3/uL (0-0.4); EOSINOPHILS % (AUTO) 2 % (1-7); LYMPHOCYTES # (AUTO) 1.25 x10^3/uL (1-3.4); LYMPHOCYTES % (AUTO) 22 % (22-44); MD NO; MEAN CORPUSCULAR HEMOGLOBIN 31.7 pg (27.0-34.8); MEAN CORPUSCULAR VOLUME 95.8 fL (80-100); MEAN PLATELET VOLUME 7.6 fL (7.4-10.4); MONOCYTES # (AUTO) 0.59 x10^3/uL (0.2-0.8); MONOCYTES % (AUTO) 11 % (2-9); NEUTROPHILS % (AUTO) 65 % (42-75); PLATELET COUNT 126 x10^3/uL (130-400); RED BLOOD COUNT 2.82 x10^6/uL (3.82-5.3); RED CELL DISTRIBUTION WIDTH 17.8 % (9.6-15.2)
[2019-10-14 07:40] LABS: ANION GAP 9 mmol/L (5-15); CALCIUM 8.1 mg/dL (8.5-10.1); CHLORIDE 102 mmol/L (98-107); CREATININE 3.89 mg/dL (0.55-1.02)
[2019-10-14 08:08] VITALS: BP 111/67
[2019-10-14] MEDS: SEVELAMER CARBONATE 800MG TAB PO SCH ×2 (08:59→15:13)
[2019-10-14] MEDS: CALCITRIOL 0.25 MCG CAPSULE PO SCH ×2 (08:59→20:45)
[2019-10-14] MEDS: ONDANSETRON 2MG/ML, 2ML IVPush PRN ×2 (09:20→20:54)
[2019-10-14] MEDS: POTASSIUM CHLORIDE 10% 40 MEQ/30 ML UDC PO SCH ×2 (12:00→20:44)
[2019-10-14] MEDS ORDERED: POTASSIUM CHLORIDE 10 MEQ TABLET.ER ONE (12:15)
[2019-10-14] MEDS ORDERED: POTASSIUM CHLORIDE 20 MEQ TAB.ER.PRT ONE (12:15)
[2019-10-14 13:17] VITALS: BP 99/56
[2019-10-14 19:30] VITALS: BP 126/86
[2019-10-15 02:00] VITALS: BP 109/66
[2019-10-15] MEDS: HYDROmorphone 2 MG/ML, 1ML IV PRN ×4 (02:08→18:16)
[2019-10-15 07:20] LABS: BASOPHILS # (AUTO) 0.01 x10^3/uL (0-0.1); BASOPHILS % (AUTO) 0 % (0-1); EOSINOPHILS # (AUTO) 0.12 x10^3/uL (0-0.4); EOSINOPHILS % (AUTO) 2 % (1-7); LYMPHOCYTES # (AUTO) 1.28 x10^3/uL (1-3.4); LYMPHOCYTES % (AUTO) 23 % (22-44); MD NO; MEAN CORPUSCULAR HEMOGLOBIN 31.3 pg (27.0-34.8); MEAN CORPUSCULAR HGB CONC 32.7 g/dL (32.4-35.8); MEAN CORPUSCULAR VOLUME 95.7 fL (80-100); MEAN PLATELET VOLUME 8.3 fL (7.4-10.4); MONOCYTES # (AUTO) 0.54 x10^3/uL (0.2-0.8); MONOCYTES % (AUTO) 10 % (2-9); NEUTROPHILS # (AUTO) 3.63 x10^3/uL (1.8-6.8); NEUTROPHILS % (AUTO) 65 % (42-75); PLATELET COUNT 133 x10^3/uL (130-400); RED BLOOD COUNT 2.72 x10^6/uL (3.82-5.3)
[2019-10-15 07:32] LABS: CHLORIDE 106 mmol/L (98-107)
[2019-10-15 07:33] LABS: ALBUMIN 2.8 g/dL (3.4-5.0); ANION GAP 8 mmol/L (5-15); CREATININE 5.26 mg/dL (0.55-1.02)
[2019-10-15] MEDS: SEVELAMER CARBONATE 800MG TAB PO SCH ×3 (08:13→18:16)
[2019-10-15] MEDS: POTASSIUM CHLORIDE 10% 40 MEQ/30 ML UDC PO SCH (08:13)
[2019-10-15] MEDS: CALCITRIOL 0.25 MCG CAPSULE PO SCH (08:13)
[2019-10-15] MEDS ORDERED: POTASSIUM CHLORIDE 10 MEQ TABLET.ER ONE (08:15)
[2019-10-15] MEDS ORDERED: POTASSIUM CHLORIDE 20 MEQ TAB.ER.PRT ONE (08:15)
[2019-10-15 08:18] VITALS: BP 111/70
[2019-10-15] MEDS: ONDANSETRON 2MG/ML, 2ML IVPush PRN ×2 (08:21→18:30)
[2019-10-15 13:37] VITALS: BP 124/79
[2019-10-15] MEDS ORDERED: ALBUTEROL SULFATE 2.5 MG/3 ML ONE (17:53)
== END 2019-10-15 19:36 | disposition home health service (06) ==
LOC: ED 18:18 → INTOOBSV 18:33 → EDIP 18:33 → 4EST 21:01
PROVIDERS: ADMIT Internal Medicine; ATTEND Family Medicine
DX: T82.868A Thrombosis due to vascular prosthetic devices, implants and grafts, initial encounter (principal); I12.0 Hypertensive chronic kidney disease with stage 5 chronic kidney disease or end stage renal disease; I82.622 Acute embolism and thrombosis of deep veins of left upper extremity; N18.6 End stage renal disease; E87.1 Hypo-osmolality and hyponatremia; E87.6 Hypokalemia; E78.5 Hyperlipidemia, unspecified; F12.90 Cannabis use, unspecified, uncomplicated; F32.9 Major depressive disorder, single episode, unspecified; F43.12 Post-traumatic stress disorder, chronic; G89.29 Other chronic pain; M54.9 Dorsalgia, unspecified; I25.10 Atherosclerotic heart disease of native coronary artery without angina pectoris; I95.89 Other hypotension; Y83.2 Surgical operation with anastomosis, bypass or graft as the cause of abnormal reaction of the patient, or of later complication, without mention of misadventure at the time of the procedure; Z99.2 Dependence on renal dialysis
CPT/HCPCS: 36415; 80053; 80069; 83735; 85025; 87046; 87328; 87329; 89055; 93005; 93990; 96365; 96366; 96375; 96376; 99285; G0378; J1170; J2405; J3480; J7040; Q0162; 90935

== ENCOUNTER 2020-02-14 12:05 | Inpatient (IN) | payer MEDICARE ==
[~2020-02-14] VITALS: Ht 172.7 cm; Wt 88.0 kg
[~2020-02-14 12:05] MED LIST changes: +BISM262O20 PO; -LAMO200T2 PO; +LAMO200T6 PO; +LOPE-114 PO; +MIDO5TAB9 PO; +SEVE800T8 PO
[2020-02-14] MEDS ORDERED: SODIUM CHLORIDE 0.9% 1,000 ML IV SCH (12:48)
[2020-02-14] MEDS ORDERED: PROTAMINE SULFATE 10 MG/ML, 5ML ONE (13:06)
[2020-02-14] MEDS ORDERED: THROMBIN 20,000 UNIT VIAL TP ONE (13:06)
[2020-02-14] MEDS ORDERED: HEPARIN 1,000 UNITS/ML, 30ML ONE (13:06)
[2020-02-14] MEDS ORDERED: HEPARIN 5,000 UNITS/ML, 1ML ONE (13:06)
[2020-02-14] MEDS ORDERED: BUPIVACAINE/PF-EPI 0.5% 1:200K ONE (13:06)
[2020-02-14 13:27] LABS: BASOPHILS # (AUTO) 0.01 x10^3/uL (0-0.1); BASOPHILS % (AUTO) 0 % (0-1); EOSINOPHILS # (AUTO) 0.13 x10^3/uL (0-0.4); EOSINOPHILS % (AUTO) 3 % (1-7); LYMPHOCYTES # (AUTO) 1.23 x10^3/uL (1-3.4); LYMPHOCYTES % (AUTO) 26 % (22-44); MD NO; MEAN CORPUSCULAR HGB CONC 33.8 g/dL (32.4-35.8); MEAN CORPUSCULAR VOLUME 100.5 fL (80-100); MEAN PLATELET VOLUME 8.8 fL (7.4-10.4); MONOCYTES # (AUTO) 0.33 x10^3/uL (0.2-0.8); MONOCYTES % (AUTO) 7 % (2-9); NEUTROPHILS # (AUTO) 2.99 x10^3/uL (1.8-6.8); NEUTROPHILS % (AUTO) 64 % (42-75); PLATELET COUNT 149 x10^3/uL (130-400); RED CELL DISTRIBUTION WIDTH 13.1 % (9.6-15.2)
[2020-02-14 13:34] LABS: INTERNATIONAL NORMALIZED RATIO 0.94 (0.93-1.1)
[2020-02-14 13:35] LABS: ALANINE AMINOTRANSFERASE 25 U/L (12-78); ALBUMIN 3.7 g/dL (3.4-5.0); ANION GAP 9 mmol/L (5-15); CALCIUM 8.7 mg/dL (8.5-10.1); CHLORIDE 109 mmol/L (98-107); CREATININE 4.75 mg/dL (0.55-1.02)
[2020-02-14 13:38] LABS: ALKALINE PHOSPHATASE 65 U/L (45-117); BILIRUBIN,TOTAL 0.4 mg/dL (0.2-1.0); TOTAL PROTEIN 8.6 g/dL (6.4-8.2)
[2020-02-14 13:40] VITALS: BP 125/82
[2020-02-14] MEDS ORDERED: FENTANYL PF 250 MCG/5ML ONE (14:06)
[2020-02-14] MEDS ORDERED: PROPOFOL 50 ML ONE ×2 (14:06→15:12)
[2020-02-14] MEDS ORDERED: MIDAZOLAM 1 MG/ML, 2ML IV PRN (16:30)
[2020-02-14] MEDS ORDERED: ONDANSETRON 2MG/ML, 2ML IV PRN (16:30)
[2020-02-14] MEDS ORDERED: ONDANSETRON ODT 8 MG PO PRN (16:30)
[2020-02-14] MEDS ORDERED: EPHEDRINE 50 MG/ML, 1ML IVPush PRN (16:30)
[2020-02-14] MEDS ORDERED: EPHEDRINE 50 MG/ML, 1ML IM PRN (16:30)
[2020-02-14] MEDS ORDERED: LABETALOL 5MG/ML, 20ML IV PRN (16:30)
[2020-02-14] MEDS ORDERED: DIPHENHYDRAMINE 50 MG/ML, 1ML IVPush PRN (16:30)
[2020-02-14] MEDS ORDERED: FENTANYL PF 100 MCG/2ML ONE (16:43)
[2020-02-14] MEDS ORDERED: HYDROmorphone 1 MG/ML, 1ML INJ ONE ×2 (16:43→17:02)
[2020-02-14] MEDS: FENTANYL PF 100 MCG/2ML IV PRN ×2 (16:45→16:51)
[2020-02-14] MEDS: HYDROmorphone 2 MG/ML, 1ML IVPush PRN ×4 (16:50→17:28)
[2020-02-14] MEDS ORDERED: LOPERAMIDE 2 MG CAPSULE PO PRN (17:00)
[2020-02-14] MEDS ORDERED: morphine SULFATE 15 MG TAB.IR PO PRN (17:00)
[2020-02-14] MEDS ORDERED: MIDODRINE 5 MG TABLET PO PRN (17:00)
[2020-02-14] MEDS ORDERED: ONDANSETRON 2MG/ML, 2ML IVPush PRN (19:30)
[2020-02-14] MEDS ORDERED: LIDODERM 5% PATCH TD PRN (19:30)
[2020-02-14] MEDS ORDERED: DOCUSATE 100 MG CAPSULE PO PRN (19:30)
[2020-02-14 20:00] VITALS: BP 115/61
[2020-02-14] MEDS: CALCIUM CARBONATE 500 MG TAB.CHEW PO SCH (20:32)
[2020-02-14] MEDS: CALCITRIOL 0.25 MCG CAPSULE PO SCH (20:33)
[2020-02-14] MEDS: SEVELAMER CARBONATE 800MG TAB PO SCH (20:33)
[2020-02-14] MEDS ORDERED: TEMAZEPAM 15 MG CAPSULE PO PRN (21:00)
[2020-02-14] MEDS: CEFAZOLIN 2,000 MG in SODIUM CHLORIDE 0.9% 50 ML IVPB SCH (21:55)
[2020-02-14] MEDS: morphine SULFATE 10 MG/ML, 1ML IVPush PRN (22:02)
[2020-02-15 00:11] VITALS: BP 113/71
[2020-02-15] MEDS: morphine SULFATE 10 MG/ML, 1ML IVPush PRN ×5 (01:56→23:19)
[2020-02-15 03:46] VITALS: BP 116/68
[2020-02-15 05:47] LABS: BASOPHILS # (AUTO) 0.02 x10^3/uL (0-0.1); BASOPHILS % (AUTO) 0 % (0-1); EOSINOPHILS # (AUTO) 0.16 x10^3/uL (0-0.4); EOSINOPHILS % (AUTO) 3 % (1-7); LYMPHOCYTES # (AUTO) 1.21 x10^3/uL (1-3.4); LYMPHOCYTES % (AUTO) 26 % (22-44); MD NO; MEAN CORPUSCULAR HEMOGLOBIN 34.4 pg (27.0-34.8); MEAN CORPUSCULAR HGB CONC 34.4 g/dL (32.4-35.8); MEAN CORPUSCULAR VOLUME 99.9 fL (80-100); MEAN PLATELET VOLUME 8.7 fL (7.4-10.4); MONOCYTES # (AUTO) 0.32 x10^3/uL (0.2-0.8); MONOCYTES % (AUTO) 7 % (2-9); NEUTROPHILS # (AUTO) 2.97 x10^3/uL (1.8-6.8); NEUTROPHILS % (AUTO) 63 % (42-75); PLATELET COUNT 129 x10^3/uL (130-400); RED BLOOD COUNT 2.79 x10^6/uL (3.82-5.3); RED CELL DISTRIBUTION WIDTH 13.3 % (9.6-15.2)
[2020-02-15 05:55] LABS: ANION GAP 7 mmol/L (5-15); CALCIUM 8.8 mg/dL (8.5-10.1); CHLORIDE 110 mmol/L (98-107); CREATININE 4.61 mg/dL (0.55-1.02)
[2020-02-15] MEDS: CEFAZOLIN 2,000 MG in SODIUM CHLORIDE 0.9% 50 ML IVPB SCH (06:07)
[2020-02-15 06:55] VITALS: BP 117/80
[2020-02-15] MEDS: SEVELAMER CARBONATE 800MG TAB PO SCH ×3 (08:48→17:07)
[2020-02-15] MEDS: CALCITRIOL 0.25 MCG CAPSULE PO SCH ×2 (08:48→20:36)
[2020-02-15] MEDS: CALCIUM CARBONATE 500 MG TAB.CHEW PO SCH ×3 (08:48→20:36)
[2020-02-15] MEDS ORDERED: ARANESP 60 MCG/ML **ESRD SQ SCH (13:00)
[2020-02-15 13:55] VITALS: BP 130/83
[2020-02-15] MEDS ORDERED: ROCURONIUM 10 MG/ML,10ML ONE (14:10)
[2020-02-15] MEDS ORDERED: CEFAZOLIN 1,000 MG ONE (14:10)
[2020-02-15 19:16] VITALS: BP 144/80
[2020-02-16 02:00] VITALS: BP 124/75
[2020-02-16] MEDS: morphine SULFATE 10 MG/ML, 1ML IVPush PRN ×3 (05:05→18:23)
[2020-02-16 05:17] LABS: ALBUMIN 3.2 g/dL (3.4-5.0); ANION GAP 5 mmol/L (5-15); CALCIUM 9.2 mg/dL (8.5-10.1); CHLORIDE 111 mmol/L (98-107)
[2020-02-16 05:21] LABS: ALANINE AMINOTRANSFERASE 10 U/L (12-78); ALKALINE PHOSPHATASE 56 U/L (45-117); BILIRUBIN,TOTAL 0.4 mg/dL (0.2-1.0); TOTAL PROTEIN 8.2 g/dL (6.4-8.2)
[2020-02-16 06:40] VITALS: BP 106/65
[2020-02-16] MEDS: SEVELAMER CARBONATE 800MG TAB PO SCH ×3 (08:03→16:41)
[2020-02-16] MEDS: CALCITRIOL 0.25 MCG CAPSULE PO SCH (08:03)
[2020-02-16] MEDS: CALCIUM CARBONATE 500 MG TAB.CHEW PO SCH ×2 (08:03→16:41)
[2020-02-16 16:37] VITALS: BP 90/45
[2020-02-16 16:43] VITALS: BP 101/61
[2020-02-16 18:22] VITALS: BP 101/67
== END 2020-02-16 18:41 | disposition home or self-care (01) | DRG 981 ==
LOC: OR 12:05 → 4NE 18:03 → OR 19:40 → 4NE 19:56
PROVIDERS: ADMIT Surgery; ATTEND Surgery
PROC: 041L0JS Bypass Left Femoral Artery to Lower Extremity Vein with Synthetic Substitute, Open Approach (ICD-10-PCS; principal; 2020-02-14 14:00)
PROC: 5A1D70Z Performance of Urinary Filtration, Intermittent, Less than 6 Hours Per Day (ICD-10-PCS; 2020-02-16)
DX: Z49.01 Encounter for fitting and adjustment of extracorporeal dialysis catheter (principal); N18.6 End stage renal disease; I12.0 Hypertensive chronic kidney disease with stage 5 chronic kidney disease or end stage renal disease; E87.2 Acidosis; D63.1 Anemia in chronic kidney disease; E87.5 Hyperkalemia; F12.90 Cannabis use, unspecified, uncomplicated; F43.10 Post-traumatic stress disorder, unspecified; G89.29 Other chronic pain; N25.0 Renal osteodystrophy; Z88.0 Allergy status to penicillin; Z88.8 Allergy status to other drugs, medicaments and biological substances; Z87.891 Personal history of nicotine dependence; X58.XXXA Exposure to other specified factors, initial encounter; Y93.89 Activity, other specified; Y92.89 Other specified places as the place of occurrence of the external cause; Y99.8 Other external cause status
CPT/HCPCS: 36415; 71045; 80048; 80053; 85025; 85610; 85730; 93005; G0378; J0690; J0882; J1170; J1644; J2704; J2720; J3010; C1768; J2270; J7030

== ENCOUNTER 2020-06-21 12:39 | Observation (INO) | payer MEDICARE ==
[~2020-06-21] VITALS: Ht 172.7 cm; Wt 85.7 kg
[~2020-06-21 12:39] MED LIST changes: +APIX5TAB PO; +BUDE9TAB2 PO; +CLOP75TA PO; +MIDO2.5T PO; +RIVA20TA PO
--- NOTE | 2020-06-21 13:45 | NUR ---
RELEASE MANAGER: PT TO ROOM FROM LOBBY VIA ALYSE GARCIA
[2020-06-21] MEDS ORDERED: ONDANSETRON 2MG/ML, 2ML ONE (14:26)
[2020-06-21] MEDS ORDERED: MORPHINE SULFATE 4 MG/ML, 1ML ONE ×2 (14:26→18:00)
[2020-06-21] MEDS: MORPHINE SULFATE 4 MG/ML, 1ML IVPush PRN ×2 (14:47→18:04)
--- NOTE | 2020-06-21 14:54 | NUR ---
REPORT RECEIVED FROM SHREYA ROWE. PLAN OF CARE DISCUSSED
--- NOTE | 2020-06-21 14:56 | NUR ---
PT MEDICATED PER JAN. VSS. 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
[2020-06-21] MEDS ORDERED: ONDANSETRON 2MG/ML, 2ML IVPush ONE (15:00)
[2020-06-21] MEDS ORDERED: SODIUM CHLORIDE FLUSH 10ML SYR IVF ONE (15:00)
[2020-06-21 15:30] LABS: BASOPHILS # (AUTO) 0.02 x10^3/uL (0-0.1); BASOPHILS % (AUTO) 0 % (0-1); EOSINOPHILS # (AUTO) 0.07 x10^3/uL (0-0.4); EOSINOPHILS % (AUTO) 1 % (1-7); LYMPHOCYTES # (AUTO) 0.87 x10^3/uL (1-3.4); LYMPHOCYTES % (AUTO) 16 % (22-44); MD NO; MEAN CORPUSCULAR HEMOGLOBIN 34.5 pg (27.0-34.8); MEAN CORPUSCULAR HGB CONC 33.2 g/dL (32.4-35.8); MEAN PLATELET VOLUME 8.3 fL (7.4-10.4); MONOCYTES # (AUTO) 0.32 x10^3/uL (0.2-0.8); MONOCYTES % (AUTO) 6 % (2-9); NEUTROPHILS # (AUTO) 4.18 x10^3/uL (1.8-6.8); NEUTROPHILS % (AUTO) 77 % (42-75); PLATELET COUNT 190 x10^3/uL (130-400); RED BLOOD COUNT 2.66 x10^6/uL (3.82-5.3); RED CELL DISTRIBUTION WIDTH 13.9 % (9.6-15.2)
[2020-06-21 15:34] LABS: ALANINE AMINOTRANSFERASE 21 U/L (12-78); ALBUMIN 3.8 g/dL (3.4-5.0); ANION GAP 6 mmol/L (5-15); CALCIUM 8.5 mg/dL (8.5-10.1); CHLORIDE 111 mmol/L (98-107); CREATININE 6.06 mg/dL (0.55-1.02)
[2020-06-21 15:37] LABS: ALKALINE PHOSPHATASE 58 U/L (45-117); BILIRUBIN,TOTAL 0.5 mg/dL (0.2-1.0); TOTAL PROTEIN 8.3 g/dL (6.4-8.2)
--- NOTE | 2020-06-21 15:59 | NUR ---
PATIENT AMBULATORY WITH HOME WALKER TO RESTROOM FOR UA
[2020-06-21 16:41] LABS: HCG UR SG 1.009 (1.003-1.030); MICROSCOPIC NOT IND
--- NOTE | 2020-06-21 16:48 | NUR ---
ALL RESULTS BACK, PATIENT UP FOR RECHECK
--- NOTE | 2020-06-21 17:33 | NUR ---
ERP TO ROOM FOR RECHECK
[2020-06-21] MEDS ORDERED: SODIUM CHLORIDE 0.9% 1,000 ML IV ONE (18:00)
--- NOTE | 2020-06-21 18:48 | NUR ---
PATIENT TO CT
--- NOTE | 2020-06-21 18:53 | NUR ---
REPORT GIVEN TO SHREYA WRIGHT. PLAN OF CARE DISCUSSED
--- NOTE | 2020-06-21 19:02 | NUR ---
PATIENT RETURNED FROM CT, TOLERATED WELL. UP TO RESTROOM WITH WALKER, STEADY GAIT PRESENT. AT BEDSIDE.
[2020-06-21] MEDS ORDERED: OMNIPAQUE 350 MG/ML, 100ML BOTTLE ONE (19:05)
--- NOTE | 2020-06-21 19:55 | NUR ---
DIALYSIS, WILL, . CONTACT FOR DIALYSIS INFORMATION.
[2020-06-21] MEDS ORDERED: INSULIN REGULAR 100 UNITS/ML, 3ML VIAL IVPush ONE (20:00)
[2020-06-21] MEDS ORDERED: DEXTROSE 50%, 50ML SYRINGE IVPush ONE (20:00)
[2020-06-21] MEDS ORDERED: ALBUTEROL 0.5%, 20ML NPPB ONE (20:00)
--- NOTE | 2020-06-21 20:00 | NUR ---
RN WILL, DIALYSIS, CALLED INQUIRING ABOUT PATIENT AND DIALYSIS. 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 PATIENT WILL NOT HAVE DIALYSIS IN EMERGENCY DEPARTMENT. SPOKE WITH FAMILY SERVICES WORKER REGARDING PATIENT AND PLAN OF CARE.
[2020-06-21] MEDS ORDERED: DEXTROSE 50%, 50ML SYRINGE ONE (20:19)
[2020-06-21] MEDS ORDERED: ALBUTEROL SULFATE 2.5MG/0.5ML ONE (20:19)
[2020-06-21] MEDS ORDERED: INSULIN SINGLE DOSE, ER ONE (20:21)
--- NOTE | 2020-06-21 20:37 | NUR ---
HOSPITALIST IN ROOM PRIOR TO ADMINISTRATION OF MEDICATION. MEDICATION WILL BE HELD CONSIDERING PATIENT WILL BE GOING TO DIALYSIS IN 30MINS. RN WILL IS DIALYSIS NURSE, SPOKE WITH HIM. PATIENT WILL BE TAKE TO DIALYSIS ROOM FOR TREATMENT. PATIENT UPDATED ON PLAN OF CARE. NO NOTED ADDITIONAL NEEDS. WILL AWAIT ADMIT ORDERS.
--- NOTE | 2020-06-21 21:04 | NUR ---
SPOKE WITH WILL, TELE [address] FLOOR[address] PATIENT ON TELEMTRY MONITOR WHILE IN DIALYSIS.
--- NOTE | 2020-06-21 21:08 | NUR ---
PATIENT WILL BE TRANSPORTED TO DIALYSIS VIA WHEELCHAIR.
[2020-06-21] MEDS ORDERED: PANTOPRAZOLE 40 MG IV IVPush SCH (21:30)
[2020-06-21] MEDS ORDERED: POLYETHYLENE GLYCOL 17 GM PACKET PO PRN (21:30)
[2020-06-21] MEDS ORDERED: MELATONIN 5 MG TABLET PO PRN (21:30)
[2020-06-21] MEDS ORDERED: ONDANSETRON 2MG/ML, 2ML IVPush PRN (21:30)
[2020-06-21] MEDS ORDERED: hydrALAzine 20 MG/ML, 1ML IVPush PRN (21:30)
[2020-06-21] MEDS ORDERED: LIDODERM 5% PATCH TD PRN (21:30)
--- NOTE | 2020-06-21 21:44 | NUR ---
Report received from SHREYA Darby. Plan of care discussed
--- NOTE | 2020-06-21 23:16 | NUR ---
THROUGHPUT RN: CALLED AND CLARIFIED ADMIT ORDER. PER LANDRY BONE, PT TO BE ADMITTED MEDTELE NOT ANTE . ORDER CHANGED.
--- NOTE | 2020-06-21 23:18 | NUR ---
REPORT GIVEN TO SHREYA SAUER. PATIENT TO GO TO MED TELE ROOM FROM DIALYSIS. NO BELONGINGS LEFT IN ER ROOM
[2020-06-22] MEDS: HEPARIN 5,000 UNITS/ML, 1ML SQ SCH ×3 (02:02→17:15)
[2020-06-22] MEDS: morphine SULFATE 10 MG/ML, 1ML IVPush PRN ×2 (02:03→05:16)
[2020-06-22 02:35] VITALS: BP 164/99
[2020-06-22 05:27] VITALS: BP 137/76
[2020-06-22 06:26] LABS: ANION GAP 5 mmol/L (5-15); CALCIUM 9.2 mg/dL (8.5-10.1); CHLORIDE 111 mmol/L (98-107)
[2020-06-22 06:29] LABS: MEAN CORPUSCULAR HEMOGLOBIN 34.3 pg (27.0-34.8); MEAN CORPUSCULAR HGB CONC 33.4 g/dL (32.4-35.8); MEAN PLATELET VOLUME 8.1 fL (7.4-10.4); PLATELET COUNT 170 x10^3/uL (130-400); RED BLOOD COUNT 2.68 x10^6/uL (3.82-5.3); RED CELL DISTRIBUTION WIDTH 13.9 % (9.6-15.2)
[2020-06-22 06:50] LABS: BASOPHILS # (AUTO) 0.01 x10^3/uL (0-0.1); BASOPHILS % (AUTO) 1 % (0-1); EOSINOPHILS # (AUTO) 0.06 x10^3/uL (0-0.4); EOSINOPHILS % (AUTO) 2 % (1-7); LYMPHOCYTES # (AUTO) 1.07 x10^3/uL (1-3.4); LYMPHOCYTES % (AUTO) 35 % (22-44); MD SCAN; MONOCYTES # (AUTO) 0.26 x10^3/uL (0.2-0.8); MONOCYTES % (AUTO) 8 % (2-9); NEUTROPHILS # (AUTO) 1.67 x10^3/uL (1.8-6.8); NEUTROPHILS % (AUTO) 55 % (42-75)
[2020-06-22 07:29] VITALS: BP 98/48
[2020-06-22] MEDS: SUCRALFATE 1 GM/10 ML UDC PO SCH ×3 (10:29→20:31)
[2020-06-22] MEDS: MORPHINE SULFATE 4 MG/ML, 1ML IVPush PRN ×3 (10:30→23:09)
[2020-06-22] MEDS ORDERED: MIDO5TAB9 PO (11:42)
[2020-06-22 13:30] VITALS: BP 112/76
[2020-06-22] MEDS: MIDODRINE 5 MG TABLET PO SCH ×3 (14:22→20:37)
[2020-06-22 17:25] VITALS: BP 144/82
[2020-06-22 20:14] VITALS: BP 133/74
[2020-06-23] MEDS: HEPARIN 5,000 UNITS/ML, 1ML SQ SCH ×2 (01:01→09:13)
[2020-06-23 01:37] VITALS: BP 132/74
[2020-06-23] MEDS: MORPHINE SULFATE 4 MG/ML, 1ML IVPush PRN (05:12)
[2020-06-23] MEDS: SUCRALFATE 1 GM/10 ML UDC PO SCH ×2 (05:20→13:58)
[2020-06-23] MEDS ORDERED: PANTOPRAZOLE 40MG TABLET PO SCH (06:00)
[2020-06-23] MEDS ORDERED: PANTOPRAZOLE 40 MG IV IVPush SCH (06:00)
[2020-06-23 06:45] LABS: BASOPHILS # (AUTO) 0.02 x10^3/uL (0-0.1); BASOPHILS % (AUTO) 1 % (0-1); EOSINOPHILS # (AUTO) 0.09 x10^3/uL (0-0.4); EOSINOPHILS % (AUTO) 3 % (1-7); LYMPHOCYTES # (AUTO) 1.26 x10^3/uL (1-3.4); LYMPHOCYTES % (AUTO) 37 % (22-44); MD NO; MEAN CORPUSCULAR HEMOGLOBIN 34.5 pg (27.0-34.8); MEAN CORPUSCULAR HGB CONC 33.6 g/dL (32.4-35.8); MEAN PLATELET VOLUME 8.1 fL (7.4-10.4); MONOCYTES # (AUTO) 0.34 x10^3/uL (0.2-0.8); MONOCYTES % (AUTO) 10 % (2-9); NEUTROPHILS # (AUTO) 1.66 x10^3/uL (1.8-6.8); NEUTROPHILS % (AUTO) 49 % (42-75); PLATELET COUNT 148 x10^3/uL (130-400); RED BLOOD COUNT 2.31 x10^6/uL (3.82-5.3); RED CELL DISTRIBUTION WIDTH 13.9 % (9.6-15.2)
[2020-06-23 06:56] LABS: ANION GAP 4 mmol/L (5-15); CALCIUM 8.3 mg/dL (8.5-10.1); CHLORIDE 112 mmol/L (98-107)
[2020-06-23 06:57] LABS: CREATININE 4.27 mg/dL (0.55-1.02)
[2020-06-23] MEDS ORDERED: MIDODRINE 5 MG TABLET PO SCH (07:00)
[2020-06-23] MEDS ORDERED: CHLORHEXIDINE 15 ML UDC ONE (07:08)
[2020-06-23] MEDS ORDERED: ONDANSETRON 2MG/ML, 2ML ONE (07:43)
[2020-06-23] MEDS ORDERED: SUCCINYLCHOLINE 20 MG/ML, 10ML ONE (07:43)
[2020-06-23] MEDS ORDERED: PROPOFOL 10 MG/ML, 20ML ONE (07:43)
[2020-06-23] MEDS ORDERED: MIDAZOLAM 1 MG/ML, 2ML ONE (07:44)
[2020-06-23] MEDS ORDERED: PROMETHAZINE 12.5 MG SUPP PR PRN (08:00)
[2020-06-23] MEDS ORDERED: ONDANSETRON ODT 8 MG PO PRN (08:00)
[2020-06-23] MEDS ORDERED: HYDROmorphone 1 MG/ML, 1ML INJ IV PRN (08:00)
[2020-06-23] MEDS ORDERED: hydrALAzine 20 MG/ML, 1ML IV PRN (08:00)
[2020-06-23] MEDS ORDERED: ARANESP 60 MCG/ML **ESRD SQ SCH (08:00)
[2020-06-23] MEDS: MIDODRINE 5 MG TABLET PO SCH ×2 (08:00→13:59)
[2020-06-23] MEDS ORDERED: LABETALOL 5MG/ML, 20ML IV PRN (08:00)
[2020-06-23] MEDS ORDERED: ONDANSETRON 2MG/ML, 2ML IV PRN (08:00)
[2020-06-23 08:01] LABS: % IRON SATURATION 28 % (20-55); IRON LEVEL 51 mcg/dL (50-170); TOTAL IRON BINDING CAPACITY 185 mcg/dL (250-450)
[2020-06-23 09:00] VITALS: BP 121/75
[2020-06-23] MEDS ORDERED: MIDO5TAB9 PO (12:20)
[2020-06-23] MEDS ORDERED: PANT40TA3 PO (12:21)
[2020-06-23] MEDS ORDERED: APIXABAN 5 MG TABLET PO SCH (13:00)
[2020-06-23 13:57] VITALS: BP 127/76
[2020-07-31] MEDS ORDERED: PANT40TA6 PO (13:08)
[2020-07-31] MEDS ORDERED: TRAZ-96 PO (13:08)
[2020-07-31] MEDS ORDERED: SILV25CR30 TP (13:08)
[2020-07-31] MEDS ORDERED: BUDE9TAB2 PO (13:08)
[2020-08-29] MEDS ORDERED: COLE1TAB2 PO (07:35)
[2020-08-29] MEDS ORDERED: DIPH1TAB6 PO (07:35)
[2020-08-29] MEDS ORDERED: ACET325C6 PO (07:35)
== END 2020-06-23 17:10 | disposition home health service (06) ==
LOC: ED 13:39 → EDIP 19:48 → INTOOBSV 19:48 → 4WST 23:51
PROVIDERS: ADMIT Internal Medicine; ATTEND Internal Medicine
DX: R10.13 Epigastric pain (principal); Z20.828 Contact with and (suspected) exposure to other viral communicable diseases; R11.2 Nausea with vomiting, unspecified; R50.9 Fever, unspecified; N18.6 End stage renal disease; I95.89 Other hypotension; D63.1 Anemia in chronic kidney disease; E87.5 Hyperkalemia; D75.89 Other specified diseases of blood and blood-forming organs; F43.10 Post-traumatic stress disorder, unspecified; I25.10 Atherosclerotic heart disease of native coronary artery without angina pectoris; E78.5 Hyperlipidemia, unspecified; K52.832 Lymphocytic colitis; E87.3 Alkalosis; G89.29 Other chronic pain; M54.9 Dorsalgia, unspecified; D72.819 Decreased white blood cell count, unspecified; F41.8 Other specified anxiety disorders; G47.00 Insomnia, unspecified; Z87.19 Personal history of other diseases of the digestive system; Z99.2 Dependence on renal dialysis; Z79.01 Long term (current) use of anticoagulants; Z79.899 Other long term (current) drug therapy; Z87.891 Personal history of nicotine dependence; Z88.0 Allergy status to penicillin
CPT/HCPCS: 36415; 43235; 71045; 74177; 80048; 80053; 81003; 81025; 82533; 82607; 83540; 83550; 83690; 83735; 84100; 85025; 87040; 87635; 93005; 96361; 96372; 96374; 96375; 96376; 99285; C9113; G0378; J0330; J0882; J1644; J1815; J2250; J2270; J2405; J2704; J7030; Q9967; 90935

== ENCOUNTER 2020-07-06 13:27 | Inpatient (IN) | payer MEDICARE ==
[~2020-07-06] VITALS: Ht 172.7 cm; Wt 87.5 kg
[~2020-07-06 13:27] MED LIST changes: +PANT40TA3 PO
--- NOTE | 2020-07-06 14:15 | NUR ---
PT C/O BLOODY STOOL, ABD [place], [place] REQUESTING H/H WITH MOST HEMOGLOBIN OF "10.3" PER PT. PT ALSO REQUESTING TO SPEAK TO MD ABOUT OXYCODONE. FATHER WITH PT ATBEDSIDE. PT ADVISED TO CHANGE INTO PT GOWN FOR MD EXAM. WAITING FOR MD ORDERS.
--- NOTE | 2020-07-06 15:19 | NUR ---
PT REQUESTING PAIN MEDS AND NAUSEA MEDS. MD AWARE.
[2020-07-06 15:34] LABS: BASOPHILS # (AUTO) 0.02 x10^3/uL (0-0.1); BASOPHILS % (AUTO) 0 % (0-1); EOSINOPHILS % (AUTO) 2 % (1-7); LYMPHOCYTES # (AUTO) 1.15 x10^3/uL (1-3.4); LYMPHOCYTES % (AUTO) 26 % (22-44); MD NO; MEAN CORPUSCULAR HEMOGLOBIN 34.8 pg (27.0-34.8); MEAN CORPUSCULAR VOLUME 102.5 fL (80-100); MEAN PLATELET VOLUME 8.4 fL (7.4-10.4); MONOCYTES # (AUTO) 0.51 x10^3/uL (0.2-0.8); MONOCYTES % (AUTO) 11 % (2-9); NEUTROPHILS # (AUTO) 2.73 x10^3/uL (1.8-6.8); NEUTROPHILS % (AUTO) 61 % (42-75); PLATELET COUNT 158 x10^3/uL (130-400); RED BLOOD COUNT 2.63 x10^6/uL (3.82-5.3); RED CELL DISTRIBUTION WIDTH 13.8 % (9.6-15.2)
[2020-07-06 15:44] LABS: ANION GAP 9 mmol/L (5-15); CALCIUM 8.8 mg/dL (8.5-10.1); CHLORIDE 93 mmol/L (98-107); CREATININE 3.78 mg/dL (0.55-1.02)
[2020-07-06 15:58] LABS: INTERNATIONAL NORMALIZED RATIO 1.04 (0.93-1.1); PROTHROMBIN TIME 10.7 Seconds (9.6-11.5)
[2020-07-06] MEDS ORDERED: SODIUM CHLORIDE FLUSH 10ML SYR IVF ONE (16:00)
--- NOTE | 2020-07-06 16:35 | NUR ---
DR. HARRINGTON AT BEDSIDE FOR RECHECK. AWAITING FURTHER ORDERS.
[2020-07-06] MEDS ORDERED: KETOROLAC 30 MG/1 ML ONE (17:14)
[2020-07-06] MEDS ORDERED: MORPHINE SULFATE 4 MG/ML, 1ML ONE (17:21)
--- NOTE | 2020-07-06 17:28 | NUR ---
BREAK RN: PT RESTING ON [place]. NADN. VSS. PT BUN 24/CREAT 3.78 CANNOT GET TORADOL. SPOKE W/ ERP DR. HARRINGTON AND PT. AGREED TO DO MORPHINE FOR PT. PT MEDICATED PER JAN.
[2020-07-06] MEDS ORDERED: MORPHINE SULFATE 4 MG/ML, 1ML IVPush PRN (17:30)
[2020-07-06] MEDS ORDERED: KETOROLAC 30 MG/1 ML IVPush ONE (18:00)
[2020-07-06] MEDS ORDERED: ACETAMINOPHEN 325 MG TABLET PO PRN (18:00)
[2020-07-06] MEDS ORDERED: ONDANSETRON ODT 4 MG PO PRN (18:00)
[2020-07-06] MEDS ORDERED: TEMAZEPAM 15 MG CAPSULE PO PRN (18:00)
[2020-07-06] MEDS ORDERED: ONDANSETRON 2MG/ML, 2ML IVPush PRN (18:00)
[2020-07-06] MEDS ORDERED: METOCLOPRAMIDE 5 MG/ML, 2ML IVPush PRN (18:00)
[2020-07-06] MEDS ORDERED: TRAZODONE 50MG TABLET PO PRN (18:00)
--- NOTE | 2020-07-06 18:27 | NUR ---
ADMIT MD AT BEDSIDE. AWAITING FURTHER ORDERS.
[2020-07-06] MEDS ORDERED: MIDO5TAB9 PO (19:43)
[2020-07-06 20:14] VITALS: BP 155/81
[2020-07-06] MEDS: SEVELAMER CARBONATE 800MG TAB PO SCH ×2 (21:00→21:03)
[2020-07-06] MEDS: MIDODRINE 5 MG TABLET PO SCH (21:03)
[2020-07-06] MEDS: CALCITRIOL 0.25 MCG CAPSULE PO SCH (21:03)
[2020-07-06] MEDS ORDERED: GOLYTELY 4,000ML ORAL.SOL PO ONE (22:00)
[2020-07-07] MEDS: morphine SULFATE ORAL.CONC 20 MG/ML PO PRN ×4 (00:38→23:47)
[2020-07-07 01:07] VITALS: BP 155/81
[2020-07-07 08:32] VITALS: BP 110/69
[2020-07-07] MEDS: SEVELAMER CARBONATE 800MG TAB PO SCH ×3 (08:36→20:35)
[2020-07-07] MEDS: MIDODRINE 5 MG TABLET PO SCH ×4 (08:45→15:54)
[2020-07-07] MEDS: CALCITRIOL 0.25 MCG CAPSULE PO SCH ×2 (08:45→21:54)
[2020-07-07] MEDS: PANTOPRAZOLE 40MG TABLET PO SCH (08:45)
[2020-07-07] MEDS ORDERED: DARBEPOETIN 60 MCG/ML SQ SCH (12:00)
[2020-07-07] MEDS ORDERED: PROPOFOL 10 MG/ML, 20ML ONE (12:47)
[2020-07-07] MEDS ORDERED: MIDAZOLAM 1 MG/ML, 2ML ONE (13:03)
[2020-07-07 13:56] VITALS: BP 99/68
[2020-07-07] MEDS ORDERED: ARANESP 60 MCG/ML **ESRD SQ SCH (14:00)
[2020-07-07] MEDS ORDERED: MIDODRINE 5 MG TABLET PO PRN (18:00)
[2020-07-07 20:34] VITALS: BP 126/73
[2020-07-07] MEDS ORDERED: MIDODRINE 5 MG TABLET PO ONE (22:00)
[2020-07-07 23:11] VITALS: BP 104/68
[2020-07-08 01:35] VITALS: BP 111/86
[2020-07-08 04:46] LABS: BASOPHILS # (AUTO) 0.02 x10^3/uL (0-0.1); BASOPHILS % (AUTO) 1 % (0-1); EOSINOPHILS # (AUTO) 0.09 x10^3/uL (0-0.4); EOSINOPHILS % (AUTO) 2 % (1-7); LYMPHOCYTES # (AUTO) 1.34 x10^3/uL (1-3.4); LYMPHOCYTES % (AUTO) 36 % (22-44); MD NO; MEAN CORPUSCULAR HEMOGLOBIN 34.4 pg (27.0-34.8); MEAN CORPUSCULAR HGB CONC 33.6 g/dL (32.4-35.8); MEAN CORPUSCULAR VOLUME 102.3 fL (80-100); MEAN PLATELET VOLUME 8.3 fL (7.4-10.4); MONOCYTES # (AUTO) 0.42 x10^3/uL (0.2-0.8); MONOCYTES % (AUTO) 11 % (2-9); NEUTROPHILS # (AUTO) 1.85 x10^3/uL (1.8-6.8); NEUTROPHILS % (AUTO) 50 % (42-75); PLATELET COUNT 161 x10^3/uL (130-400); RED BLOOD COUNT 2.56 x10^6/uL (3.82-5.3)
[2020-07-08 04:58] LABS: CHLORIDE 102 mmol/L (98-107)
[2020-07-08 05:06] LABS: % IRON SATURATION 24 % (20-55); ALANINE AMINOTRANSFERASE 18 U/L (12-78); ALBUMIN 3.2 g/dL (3.4-5.0); ALKALINE PHOSPHATASE 53 U/L (45-117); ANION GAP 6 mmol/L (5-15); BILIRUBIN,TOTAL 0.5 mg/dL (0.2-1.0); CALCIUM 8.4 mg/dL (8.5-10.1); CREATININE 3.16 mg/dL (0.55-1.02); IRON LEVEL 43 mcg/dL (50-170); TOTAL IRON BINDING CAPACITY 182 mcg/dL (250-450); TOTAL PROTEIN 7.5 g/dL (6.4-8.2)
[2020-07-08 06:54] VITALS: BP 126/80
[2020-07-08] MEDS: SEVELAMER CARBONATE 800MG TAB PO SCH ×2 (08:13→15:05)
[2020-07-08] MEDS: MIDODRINE 5 MG TABLET PO SCH ×3 (08:15→17:09)
[2020-07-08] MEDS: PANTOPRAZOLE 40MG TABLET PO SCH (08:15)
[2020-07-08] MEDS: CALCITRIOL 0.25 MCG CAPSULE PO SCH (08:15)
[2020-07-08] MEDS: morphine SULFATE ORAL.CONC 20 MG/ML PO PRN (08:16)
[2020-07-08 14:17] VITALS: BP 104/66
[2020-07-08 15:19] VITALS: BP 136/81
== END 2020-07-08 17:25 | disposition home health service (06) | DRG 377 ==
LOC: ED 13:28 → SUATTDRO 16:58 → OBSVTOIN 19:13 → INTOOBSV 19:13 → EDIP 19:13 → 3N 19:44 → 4WST 07-07 23:03
PROVIDERS: ADMIT Internal Medicine; ATTEND Internal Medicine
PROC: 5A1D70Z Performance of Urinary Filtration, Intermittent, Less than 6 Hours Per Day (ICD-10-PCS; 2020-07-07)
PROC: 0DJD8ZZ Inspection of Lower Intestinal Tract, Via Natural or Artificial Opening Endoscopic (ICD-10-PCS; principal; 2020-07-07 12:00)
DX: K62.5 Hemorrhage of anus and rectum (principal); N18.6 End stage renal disease; D62 Acute posthemorrhagic anemia; I12.0 Hypertensive chronic kidney disease with stage 5 chronic kidney disease or end stage renal disease; D63.1 Anemia in chronic kidney disease; E06.3 Autoimmune thyroiditis; E11.22 Type 2 diabetes mellitus with diabetic chronic kidney disease; F12.20 Cannabis dependence, uncomplicated; F32.9 Major depressive disorder, single episode, unspecified; F43.10 Post-traumatic stress disorder, unspecified; F44.9 Dissociative and conversion disorder, unspecified; G89.29 Other chronic pain; I25.10 Atherosclerotic heart disease of native coronary artery without angina pectoris; I95.0 Idiopathic hypotension; K52.832 Lymphocytic colitis; K64.4 Residual hemorrhoidal skin tags; K64.8 Other hemorrhoids; N25.0 Renal osteodystrophy; F44.81 Dissociative identity disorder; I95.89 Other hypotension; K43.9 Ventral hernia without obstruction or gangrene; K52.9 Noninfective gastroenteritis and colitis, unspecified; Z20.828 Contact with and (suspected) exposure to other viral communicable diseases; Z79.01 Long term (current) use of anticoagulants; Z82.49 Family history of ischemic heart disease and other diseases of the circulatory system; Z83.3 Family history of diabetes mellitus; Z85.118 Personal history of other malignant neoplasm of bronchus and lung; Z90.49 Acquired absence of other specified parts of digestive tract; Z90.710 Acquired absence of both cervix and uterus; Z93.3 Colostomy status; Z88.5 Allergy status to narcotic agent; Z88.0 Allergy status to penicillin; Z98.891 History of uterine scar from previous surgery; Z88.8 Allergy status to other drugs, medicaments and biological substances; Z79.899 Other long term (current) drug therapy; Z84.89 Family history of other specified conditions; Z80.1 Family history of malignant neoplasm of trachea, bronchus and lung; Z80.8 Family history of malignant neoplasm of other organs or systems; Z83.49 Family history of other endocrine, nutritional and metabolic diseases; Z82.5 Family history of asthma and other chronic lower respiratory diseases; Z99.2 Dependence on renal dialysis; Z84.1 Family history of disorders of kidney and ureter; Z79.84 Long term (current) use of oral hypoglycemic drugs
CPT/HCPCS: 36415; 80048; 80053; 82040; 82306; 82728; 83540; 83550; 83970; 84100; 85018; 85025; 85610; 85730; 86850; 86900; 87635; 90935; G0378; J0882; J2250; J2704; J2270

== ENCOUNTER 2020-08-09 13:38 | Emergency (ER) | payer MEDICARE ==
[~2020-08-09] VITALS: Ht 172.7 cm; Wt 83.6 kg
[~2020-08-09 13:38] MED LIST changes: +PANT40TA6 PO; +SILV25CR30 TP; +TRAZ-96 PO
[2020-08-09] MEDS ORDERED: ONDANSETRON 2MG/ML, 2ML ONE ×2 (14:24→18:28)
[2020-08-09] MEDS ORDERED: HYDROmorphone 1 MG/ML, 1ML INJ ONE (14:25)
[2020-08-09] MEDS ORDERED: HYDROmorphone 2 MG/ML, 1ML IVPush ONE (14:30)
[2020-08-09] MEDS ORDERED: SODIUM CHLORIDE FLUSH 10ML SYR IVF ONE (14:30)
[2020-08-09] MEDS ORDERED: SODIUM CHLORIDE 0.9% 1,000ML IVBOLUS ONE ×2 (14:30→16:00)
[2020-08-09] MEDS ORDERED: ONDANSETRON 2MG/ML, 2ML IVPush ONE ×2 (14:30→16:00)
--- NOTE | 2020-08-09 14:56 | NUR ---
pt here last wk for same, subjective coffee ground stools. had stable h/h here last wk. sts has had mult bouts diarrhea w/ coffee ground since yest, c/o nausea and abd pain. dr carranza was in room. piv est, labs sent. meds per jan. a&ox4 gcs 15. can do bp on lower arms, mult failed graft sites uppers. father at bedside. vss. as
[2020-08-09 15:06] LABS: BASOPHILS # (AUTO) 0.02 x10^3/uL (0-0.1); BASOPHILS % (AUTO) 0 % (0-1); EOSINOPHILS # (AUTO) 0.03 x10^3/uL (0-0.4); EOSINOPHILS % (AUTO) 1 % (1-7); LYMPHOCYTES # (AUTO) 1.01 x10^3/uL (1-3.4); LYMPHOCYTES % (AUTO) 26 % (22-44); MD NO; MEAN CORPUSCULAR HEMOGLOBIN 33.6 pg (27.0-34.8); MEAN CORPUSCULAR HGB CONC 33.5 g/dL (32.4-35.8); MEAN PLATELET VOLUME 8.3 fL (7.4-10.4); MONOCYTES # (AUTO) 0.34 x10^3/uL (0.2-0.8); MONOCYTES % (AUTO) 9 % (2-9); NEUTROPHILS # (AUTO) 2.52 x10^3/uL (1.8-6.8); NEUTROPHILS % (AUTO) 64 % (42-75); PLATELET COUNT 154 x10^3/uL (130-400); RED BLOOD COUNT 2.75 x10^6/uL (3.82-5.3); RED CELL DISTRIBUTION WIDTH 14.2 % (9.6-15.2)
[2020-08-09 15:12] LABS: ALANINE AMINOTRANSFERASE 14 U/L (12-78); ALBUMIN 3.6 g/dL (3.4-5.0); ANION GAP 8 mmol/L (5-15); CALCIUM 8.1 mg/dL (8.5-10.1); CHLORIDE 100 mmol/L (98-107)
[2020-08-09 15:14] LABS: ALKALINE PHOSPHATASE 58 U/L (45-117); BILIRUBIN,TOTAL 0.6 mg/dL (0.2-1.0); TOTAL PROTEIN 8.2 g/dL (6.4-8.2)
--- NOTE | 2020-08-09 15:36 | NUR ---
h/h incr from last time here, up for recheck. as
--- NOTE | 2020-08-09 16:14 | NUR ---
poc: 2nd liter ivf, then dc. first still infusing, slowly bc poor iv access. pt aware of plan, agrees. chace abdullahi was in room to update. as
--- NOTE | 2020-08-09 16:45 | NUR ---
TASK RN, COVERING MEAL BREAK. PT RESTING QUIETLY, EYES CLOSED. 1ST LITER NS INFUSED, 2ND LITER INFUSING NOW PER ORDER.
--- NOTE | 2020-08-09 17:38 | NUR ---
pt sleeping, vss, 2 liter bolus still infusing. as
[2020-08-09 18:36] VITALS: BP 107/50
== END 2020-08-09 18:42 | disposition home or self-care (01) ==
LOC: ED 15:50
DX: N18.9 Chronic kidney disease, unspecified (principal); R11.2 Nausea with vomiting, unspecified; E86.0 Dehydration; R10.84 Generalized abdominal pain; Z99.2 Dependence on renal dialysis; Z90.49 Acquired absence of other specified parts of digestive tract; Z90.710 Acquired absence of both cervix and uterus; Z87.891 Personal history of nicotine dependence
CPT/HCPCS: 36415; 80053; 83690; 85025; 96361; 96374; 96375; 96376; 99284; J1170; J2405; J7030

== ENCOUNTER 2020-08-11 13:27 | Emergency (ER) | payer MEDICARE ==
[~2020-08-11] VITALS: Ht 172.7 cm; Wt 83.4 kg
--- NOTE | 2020-08-11 14:00 | NUR ---
PT HAS CO COFFEE GROUND EMESIS TODAY, WAS HERE ON FRI FOR DARK STOOL. ABDOMINAL PAIN PRESENT, DIALYSIS PT. 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 LAST HD ON FRIDAY "IN TOO MUCH PAIN AND NAUSEATED TO GO." LAB AT BEDSIDE. PER WHO HAS REVIEWED HER CHARTS-NO NEED FOR PIV AT THIS TIME VSS ON NIBP/POX
[2020-08-11 14:33] LABS: ALBUMIN 3.7 g/dL (3.4-5.0); ANION GAP 6 mmol/L (5-15); CALCIUM 8.5 mg/dL (8.5-10.1); CHLORIDE 110 mmol/L (98-107); CREATININE 5.44 mg/dL (0.55-1.02)
[2020-08-11 14:37] LABS: BASOPHILS # (AUTO) 0.02 x10^3/uL (0-0.1); BASOPHILS % (AUTO) 1 % (0-1); EOSINOPHILS # (AUTO) 0.04 x10^3/uL (0-0.4); EOSINOPHILS % (AUTO) 1 % (1-7); LYMPHOCYTES # (AUTO) 1.02 x10^3/uL (1-3.4); LYMPHOCYTES % (AUTO) 30 % (22-44); MD NO; MEAN CORPUSCULAR HEMOGLOBIN 33.7 pg (27.0-34.8); MEAN CORPUSCULAR HGB CONC 33.4 g/dL (32.4-35.8); MEAN PLATELET VOLUME 8.4 fL (7.4-10.4); MONOCYTES # (AUTO) 0.34 x10^3/uL (0.2-0.8); MONOCYTES % (AUTO) 10 % (2-9); NEUTROPHILS # (AUTO) 2.01 x10^3/uL (1.8-6.8); NEUTROPHILS % (AUTO) 59 % (42-75); PLATELET COUNT 152 x10^3/uL (130-400); RED BLOOD COUNT 2.71 x10^6/uL (3.82-5.3); RED CELL DISTRIBUTION WIDTH 14.8 % (9.6-15.2)
--- NOTE | 2020-08-11 15:18 | NUR ---
No vomiting or diarrhea while in hospital All testing resulted. Provider made aware
[2020-08-11 16:50] VITALS: BP 120/61
== END 2020-08-11 16:52 | disposition home or self-care (01) ==
LOC: ED 16:11
DX: R11.2 Nausea with vomiting, unspecified (principal); Z90.49 Acquired absence of other specified parts of digestive tract; Z87.891 Personal history of nicotine dependence
CPT/HCPCS: 36415; 80048; 82040; 85025; 99283

== ENCOUNTER → 2020-08-25 | Outpatient (CLI) | payer MEDICARE ==
[~2020-08-25] MED LIST changes: +ACET325C6 PO; +COLE1TAB2 PO; +DIPH1TAB6 PO
== END | disposition home or self-care (01) ==
LOC: STAR 08:54
PROVIDERS: ATTEND Anesthesiology
DX: Z01.812 Encounter for preprocedural laboratory examination (principal); Z20.828 Contact with and (suspected) exposure to other viral communicable diseases
CPT/HCPCS: 36415; 87635

== ENCOUNTER 2020-08-29 08:00 | Outpatient (CLI) | payer MEDICARE, OTHER ==
[~2020-08-29] VITALS: Ht 172.7 cm; Wt 81.0 kg
[2020-08-29 07:02] VITALS: BP 150/87
[2020-08-29 07:48] LABS: BASOPHILS % (AUTO) 1 % (0-1); EOSINOPHILS % (AUTO) 3 % (1-7); LYMPHOCYTES % (AUTO) 26 % (22-44); MEAN CORPUSCULAR HEMOGLOBIN 33.7 pg (27.0-34.8); MEAN CORPUSCULAR HGB CONC 33.8 g/dL (32.4-35.8); MEAN PLATELET VOLUME 8.6 fL (7.4-10.4); MONOCYTES % (AUTO) 10 % (2-9); NEUTROPHILS % (AUTO) 60 % (42-75); PLATELET COUNT 196 x10^3/uL (130-400); RED BLOOD COUNT 2.98 x10^6/uL (3.82-5.3); RED CELL DISTRIBUTION WIDTH 13.5 % (9.6-15.2)
[2020-08-29 07:58] LABS: INTERNATIONAL NORMALIZED RATIO 0.96 (0.93-1.1); PROTHROMBIN TIME 9.9 Seconds (9.6-11.5)
[~2020-08-29 08:00] MED LIST changes: +ACETAMINOPHEN 325 MG TABLET PO PRN; +ALBUTEROL/IPRATROPIUM 2.5MG/0.5MG, 3 ML NPPB PRN; +CHLORHEXIDINE 15 ML UDC MM ONE; +DIAZEPAM 5 MG/ML, 2ML IVPush PRN; +DIPHENHYDRAMINE 50 MG/ML, 1ML IVPush PRN; +EPHEDRINE 50 MG/ML, 1ML IM PRN; +EPHEDRINE 50 MG/ML, 1ML IVPush PRN; +FENTANYL PF 100 MCG/2ML IV PRN; +HALOPERIDOL 5 MG/ML IV PRN; +LABETALOL 5MG/ML, 20ML IV PRN; +LACTATED RINGERS 1,000 ML IV SCH; +LIDOCAINE-MPF 1%, 2ML INFIL ONE; +LIDOCAINE-MPF 2% ,5ML ONE; +LORazepam 2 MG/ML, 1ML IVPush PRN; +MEPERIDINE/PF 25MG/0.5ML IVPush PRN; +METHOCARBAMOL 1,000 MG in DEXTROSE 5% 100 ML IV PRN; +METOCLOPRAMIDE 5 MG/ML, 2ML IVPush PRN; +MIDAZOLAM 1 MG/ML, 2ML IV PRN; +MIDAZOLAM 1 MG/ML, 2ML ONE; +ONDANSETRON 2MG/ML, 2ML IVPush PRN; +PROPOFOL 10 MG/ML, 20ML ONE; +ROCURONIUM 10 MG/ML,10ML ONE; +hydrALAzine 20 MG/ML, 1ML IV PRN
[2020-08-29 08:02] LABS: ALANINE AMINOTRANSFERASE 17 U/L (12-78); ALBUMIN 3.9 g/dL (3.4-5.0); ANION GAP 8 mmol/L (5-15); CALCIUM 9.1 mg/dL (8.5-10.1); CHLORIDE 103 mmol/L (98-107); CREATININE 5.27 mg/dL (0.55-1.02)
[2020-08-29 08:03] LABS: ALKALINE PHOSPHATASE 68 U/L (45-117); BILIRUBIN,TOTAL 0.7 mg/dL (0.2-1.0); MD NO; TOTAL PROTEIN 8.8 g/dL (6.4-8.2)
[2020-08-29] MEDS ORDERED: SODIUM CHLORIDE 0.9% 1,000 ML IV SCH (09:00)
[2020-08-29] MEDS ORDERED: MORPHINE SULFATE 4 MG/ML, 1ML IVPush ONE (13:06)
[2020-08-29] MEDS ORDERED: ONDANSETRON 2MG/ML, 2ML IVPush ONE (13:06)
[2020-08-29] MEDS ORDERED: morphine SULFATE 10 MG/ML, 1ML ONE (13:38)
[2020-08-29] MEDS ORDERED: FENTANYL PF 100 MCG/2ML ONE (16:46)
[2020-08-29] MEDS ORDERED: CEFAZOLIN 1,000 MG ONE (18:27)
[2020-08-29] MEDS ORDERED: ONDANSETRON 2MG/ML, 2ML ONE (18:27)
[2020-08-29] MEDS ORDERED: GLYCOPYRROLATE 0.2MG/1ML, 5ML ONE (18:27)
[2020-08-29] MEDS ORDERED: DEXAMETHASONE 4 MG/ML, 1ML ONE (18:27)
[2020-08-29] MEDS ORDERED: SUCCINYLCHOLINE 20 MG/ML, 10ML ONE (18:27)
[2020-08-29] MEDS ORDERED: NEOSTIGMINE 1 MG/ML, 10ML ONE (18:27)
[2020-08-29] MEDS ORDERED: ROCURONIUM 10MG/ML,5ML ONE (18:27)
[2020-08-29] MEDS ORDERED: PROPOFOL 10 MG/ML, 20ML ONE (18:27)
[2020-09-01] MEDS ORDERED: HEPARIN 1,000 UNITS/ML, 10ML ONE (17:47)
[2020-09-01] MEDS ORDERED: PROTAMINE SULFATE 10 MG/ML, 5ML ONE (17:47)
[2020-09-01] MEDS ORDERED: BUPIVACAINE/PF 0.25% ONE (17:47)
[2020-09-01] MEDS ORDERED: THROMBIN 5,000 UNIT VIAL TP ONE (17:47)
[2020-09-01] MEDS ORDERED: PAPAVERINE 30 MG/ML, 2ML ONE (17:47)
[2020-09-05] MEDS ORDERED: PROPOFOL 10 MG/ML, 20ML ONE (07:11)
[2020-09-05] MEDS ORDERED: MIDAZOLAM 1 MG/ML, 2ML ONE (07:16)
[2020-09-05] MEDS ORDERED: CHLORHEXIDINE 15 ML UDC ONE (07:26)
[2020-09-05] MEDS ORDERED: FENTANYL PF 100 MCG/2ML ONE (07:39)
[2020-09-13] MEDS ORDERED: LIDO700A20 TD (11:15)
[2020-09-13] MEDS ORDERED: APIX5TAB PO (11:15)
== END 2020-08-29 23:59 | disposition home or self-care (01) ==
LOC: CLISVCS 08:00
PROVIDERS: ATTEND Internal Medicine Geriatric Medicine
DX: T82.868A Thrombosis due to vascular prosthetic devices, implants and grafts, initial encounter (principal); Y82.8 Other medical devices associated with adverse incidents; F32.9 Major depressive disorder, single episode, unspecified; F12.90 Cannabis use, unspecified, uncomplicated; K62.5 Hemorrhage of anus and rectum; Z90.49 Acquired absence of other specified parts of digestive tract; Z98.890 Other specified postprocedural states; Z90.710 Acquired absence of both cervix and uterus; Z88.0 Allergy status to penicillin; Z88.1 Allergy status to other antibiotic agents; Z88.5 Allergy status to narcotic agent; Z99.2 Dependence on renal dialysis; Z79.899 Other long term (current) drug therapy; Z79.01 Long term (current) use of anticoagulants; Z72.89 Other problems related to lifestyle
CPT/HCPCS: 36415; 80053; 85025; 85610; 85730; 93005; 93990; J0690; J1100; J2250; J2405; J2704; J2710; J3010; J0330; J2270; J7030

== ENCOUNTER 2020-10-06 11:37 | Emergency (ER) | payer MEDICARE, OTHER ==
[~2020-10-06] VITALS: Ht 172.7 cm; Wt 78.3 kg
[~2020-10-06 11:37] MED LIST changes: -ACETAMINOPHEN 325 MG TABLET PO PRN; -ALBUTEROL/IPRATROPIUM 2.5MG/0.5MG, 3 ML NPPB PRN; -CHLORHEXIDINE 15 ML UDC MM ONE; -DIAZEPAM 5 MG/ML, 2ML IVPush PRN; -DIPHENHYDRAMINE 50 MG/ML, 1ML IVPush PRN; -EPHEDRINE 50 MG/ML, 1ML IM PRN; -EPHEDRINE 50 MG/ML, 1ML IVPush PRN; -FENTANYL PF 100 MCG/2ML IV PRN; -HALOPERIDOL 5 MG/ML IV PRN; -LABETALOL 5MG/ML, 20ML IV PRN; -LACTATED RINGERS 1,000 ML IV SCH; +LIDO700A20 TD; -LIDOCAINE-MPF 1%, 2ML INFIL ONE; -LIDOCAINE-MPF 2% ,5ML ONE; -LORazepam 2 MG/ML, 1ML IVPush PRN; -MEPERIDINE/PF 25MG/0.5ML IVPush PRN; -METHOCARBAMOL 1,000 MG in DEXTROSE 5% 100 ML IV PRN; -METOCLOPRAMIDE 5 MG/ML, 2ML IVPush PRN; -MIDAZOLAM 1 MG/ML, 2ML IV PRN; -MIDAZOLAM 1 MG/ML, 2ML ONE; -NALO25TA PO; +NALO25TA4 PO; -ONDANSETRON 2MG/ML, 2ML IVPush PRN; -PROPOFOL 10 MG/ML, 20ML ONE; -ROCURONIUM 10 MG/ML,10ML ONE; -hydrALAzine 20 MG/ML, 1ML IV PRN
[2020-10-06 12:18] LABS: BASOPHILS % (AUTO) 1 % (0-1); EOSINOPHILS % (AUTO) 1 % (1-7); LYMPHOCYTES % (AUTO) 26 % (22-44); MEAN CORPUSCULAR HEMOGLOBIN 30.9 pg (27.0-34.8); MEAN CORPUSCULAR HGB CONC 33.6 g/dL (32.4-35.8); MEAN PLATELET VOLUME 8.5 fL (7.4-10.4); MONOCYTES % (AUTO) 9 % (2-9); NEUTROPHILS % (AUTO) 63 % (42-75); PLATELET COUNT 153 x10^3/uL (130-400); RED BLOOD COUNT 3.55 x10^6/uL (3.82-5.3); RED CELL DISTRIBUTION WIDTH 17.5 % (9.6-15.2)
[2020-10-06 12:21] LABS: MD NO
[2020-10-06 12:37] LABS: ALANINE AMINOTRANSFERASE 18 U/L (12-78); ALBUMIN 4.2 g/dL (3.4-5.0); ANION GAP 11 mmol/L (5-15); CALCIUM 8.5 mg/dL (8.5-10.1); CHLORIDE 99 mmol/L (98-107); CREATININE 5.44 mg/dL (0.55-1.02)
[2020-10-06 12:40] LABS: ALKALINE PHOSPHATASE 60 U/L (45-117); BILIRUBIN,TOTAL 0.6 mg/dL (0.2-1.0); TOTAL PROTEIN 9.4 g/dL (6.4-8.2)
[2020-10-06 13:59] VITALS: BP 129/66
--- NOTE | 2020-10-06 14:18 | NUR ---
Patient given discharge instructions and they have confirmed that they understand the instructions. VSAvril, TY. Patient ambulatory with steady gait.
== END 2020-10-06 14:20 | disposition home or self-care (01) ==
LOC: ED 14:00
DX: K92.1 Melena (principal); R10.84 Generalized abdominal pain; R11.2 Nausea with vomiting, unspecified; I12.0 Hypertensive chronic kidney disease with stage 5 chronic kidney disease or end stage renal disease; N18.6 End stage renal disease; Z99.2 Dependence on renal dialysis; Z90.49 Acquired absence of other specified parts of digestive tract; Z90.710 Acquired absence of both cervix and uterus
CPT/HCPCS: 36415; 80053; 85025; 86850; 86900; 93005; 99284

== ENCOUNTER 2021-01-04 12:37 | Day surgery (SDC) | payer MEDICARE, MEDICAID ==
[~2021-01-04] VITALS: Ht 172.7 cm; Wt 79.8 kg
[~2021-01-04 12:37] MED LIST changes: -OXYC-307 PO; +OXYC-380 PO
[2021-01-04 13:18] VITALS: BP 178/95
[2021-01-04 13:57] LABS: BASOPHILS % (AUTO) 1 % (0-1); EOSINOPHILS % (AUTO) 2 % (1-7); LYMPHOCYTES % (AUTO) 30 % (22-44); MEAN CORPUSCULAR HEMOGLOBIN 35.5 pg (27.0-34.8); MEAN PLATELET VOLUME 8.4 fL (7.4-10.4); MONOCYTES % (AUTO) 8 % (2-9); NEUTROPHILS % (AUTO) 59 % (42-75); PLATELET COUNT 174 x10^3/uL (130-400); RED BLOOD COUNT 2.53 x10^6/uL (3.82-5.3); RED CELL DISTRIBUTION WIDTH 13.6 % (9.6-15.2)
[2021-01-04 14:08] LABS: ALANINE AMINOTRANSFERASE 22 U/L (12-78); ALBUMIN 3.9 g/dL (3.4-5.0); ANION GAP 8 mmol/L (5-15); CALCIUM 8.6 mg/dL (8.5-10.1); CHLORIDE 115 mmol/L (98-107); CREATININE 4.47 mg/dL (0.55-1.02); MD NO
[2021-01-04 14:11] LABS: ALKALINE PHOSPHATASE 65 U/L (45-117); BILIRUBIN,TOTAL 0.4 mg/dL (0.2-1.0); TOTAL PROTEIN 8.5 g/dL (6.4-8.2)
[2021-01-04] MEDS ORDERED: FLUMAZENIL 0.1 MG/1 ML, 5ML ONE (14:36)
[2021-01-04] MEDS ORDERED: NALOXONE 1 MG/ML, 2ML ONE (14:36)
[2021-01-04] MEDS ORDERED: MIDAZOLAM 1 MG/ML, 5ML ONE (14:36)
[2021-01-04] MEDS ORDERED: PROTAMINE SULFATE 10 MG/ML, 25ML ONE (14:36)
[2021-01-04] MEDS ORDERED: FENTANYL PF 100 MCG/2ML ONE (14:36)
[2021-01-04] MEDS ORDERED: HEPARIN 1,000 UNITS/ML, 10ML ONE (14:36)
[2021-01-04] MEDS ORDERED: LIDOCAINE 1%, 10ML ONE (14:46)
[2021-01-04] MEDS ORDERED: ALTEPLASE 10 MG in SODIUM CHLORIDE 0.9% 50 ML, SYRINGE 1 EA IV ONE (15:00)
[2021-01-04] MEDS ORDERED: ALTEPLASE 10 MG in SODIUM CHLORIDE 0.9% 90 ML IV ONE (15:30)
[2021-01-04] MEDS ORDERED: ACETAMINOPHEN 325 MG TABLET ONE ×2 (17:13→17:23)
[2021-01-04] MEDS ORDERED: ONDANSETRON 2MG/ML, 2ML ONE (17:13)
[2021-01-04] MEDS ORDERED: ACETAMINOPHEN 650 MG/20.3 ML UDC ONE (17:25)
[2021-01-04] MEDS ORDERED: ACETAMINOPHEN 650 MG/20.3 ML UDC PO PRN (17:30)
[2021-01-04] MEDS ORDERED: ONDANSETRON 2MG/ML, 2ML IVPush ONE (17:30)
[2021-01-06] MEDS ORDERED: ACET-76 PO (17:16)
== END 2021-01-04 18:26 | disposition home or self-care (01) ==
LOC: OUT 12:37 → EDSTATUS 15:00 → OUT 18:26
PROVIDERS: ATTEND Surgery
DX: T82.868A Thrombosis due to vascular prosthetic devices, implants and grafts, initial encounter (principal); F41.9 Anxiety disorder, unspecified; F32.9 Major depressive disorder, single episode, unspecified; F17.210 Nicotine dependence, cigarettes, uncomplicated; N18.6 End stage renal disease; Z20.822 Contact with and (suspected) exposure to COVID-19; Z79.01 Long term (current) use of anticoagulants; Z79.899 Other long term (current) drug therapy; Z88.0 Allergy status to penicillin; Z88.5 Allergy status to narcotic agent; Z88.8 Allergy status to other drugs, medicaments and biological substances; Z98.890 Other specified postprocedural states; Z99.2 Dependence on renal dialysis; Z84.2 Family history of other diseases of the genitourinary system; Z83.49 Family history of other endocrine, nutritional and metabolic diseases; Y83.8 Other surgical procedures as the cause of abnormal reaction of the patient, or of later complication, without mention of misadventure at the time of the procedure
CPT/HCPCS: 36415; 36905; 76937; 80053; 85025; 99156; 99157; C1725; C1751; C1757; C1769; C1894; J2250; J2405; J2997; J3010; 36901; J1644; J2720; J2310

== ENCOUNTER 2021-01-29 18:40 | Emergency (ER) | payer MEDICARE, MEDICAID ==
[~2021-01-29] VITALS: Ht 172.7 cm; Wt 77.4 kg
[~2021-01-29 18:40] MED LIST changes: +ACET-76 PO
[2021-01-29 19:45] VITALS: BP 130/55
--- NOTE | 2021-01-29 19:49 | NUR ---
PT STATES HER LEG FELL ASLEEP DURING HER DIALYSIS TREATMENT AND WHEN SHE STOOD UP SHE FELL AND TWISTED HER RIGHT ANKLE. DENIES LOC, DENIES HEAD TRAUMA. PT ALSO MAKING COMPLAINTS OF ABD PAIN THAT IS CHRONIC IN NATURE.
--- NOTE | 2021-01-29 19:51 | NUR ---
PT STATES SHE HAS BEEN ABLE TO BEAR WEIGHT AND WALK ON IT. PT REFUSING PAIN MEDS AT THIS TIME.
[2021-01-29 20:18] LABS: BASOPHILS % (AUTO) 1 % (0-1); EOSINOPHILS % (AUTO) 1 % (1-7); LYMPHOCYTES % (AUTO) 29 % (22-44); MEAN CORPUSCULAR HGB CONC 35.3 g/dL (32.4-35.8); MEAN PLATELET VOLUME 7.9 fL (7.4-10.4); MONOCYTES % (AUTO) 9 % (2-9); NEUTROPHILS % (AUTO) 61 % (42-75); PLATELET COUNT 129 x10^3/uL (130-400); RED BLOOD COUNT 2.45 x10^6/uL (3.82-5.3); RED CELL DISTRIBUTION WIDTH 13.5 % (9.6-15.2)
[2021-01-29 20:20] LABS: MD NO
[2021-01-29 20:23] LABS: ALBUMIN 3.5 g/dL (3.4-5.0); ANION GAP 7 mmol/L (5-15); CALCIUM 8.2 mg/dL (8.5-10.1); CHLORIDE 94 mmol/L (98-107)
[2021-01-29 20:26] LABS: ALANINE AMINOTRANSFERASE 24 U/L (12-78); ALKALINE PHOSPHATASE 64 U/L (45-117); BILIRUBIN,TOTAL 0.5 mg/dL (0.2-1.0); CREATININE 2.46 mg/dL (0.55-1.02); TOTAL PROTEIN 7.8 g/dL (6.4-8.2)
[2021-01-29] MEDS ORDERED: POTASSIUM CHLORIDE 20 MEQ TAB.ER.PRT ONE (20:56)
[2021-01-29] MEDS ORDERED: POTASSIUM CHLORIDE 20 MEQ PACKET PO ONE (21:00)
[2021-01-29] MEDS ORDERED: POTASSIUM CHLORIDE 20 MEQ PACKET ONE ×2 (21:10)
== END 2021-01-29 21:20 | disposition home or self-care (01) ==
LOC: ED 21:14
DX: S93.491A Sprain of other ligament of right ankle, initial encounter (principal); N18.4 Chronic kidney disease, stage 4 (severe); E87.6 Hypokalemia; E87.3 Alkalosis; E86.9 Volume depletion, unspecified; X50.0XXA Overexertion from strenuous movement or load, initial encounter; Y93.89 Activity, other specified; Y92.009 Unspecified place in unspecified non-institutional (private) residence as the place of occurrence of the external cause; Y99.8 Other external cause status
CPT/HCPCS: 36415; 80053; 83690; 85025; 99284

== ENCOUNTER 2021-02-02 12:25 | Emergency (ER) | payer MEDICARE, MEDICAID ==
[~2021-02-02] VITALS: Ht 172.7 cm; Wt 77.4 kg
[2021-02-02 15:07] LABS: MICROSCOPIC NOT IND
[2021-02-02 15:24] LABS: ALANINE AMINOTRANSFERASE 19 U/L (12-78); ALBUMIN 3.8 g/dL (3.4-5.0); ANION GAP 7 mmol/L (5-15); CALCIUM 8.1 mg/dL (8.5-10.1); CHLORIDE 111 mmol/L (98-107)
[2021-02-02 15:26] LABS: ALKALINE PHOSPHATASE 60 U/L (45-117); BILIRUBIN,TOTAL 0.4 mg/dL (0.2-1.0); TOTAL PROTEIN 8.5 g/dL (6.4-8.2)
[2021-02-02 15:30] LABS: BASOPHILS % (AUTO) 1 % (0-1); EOSINOPHILS % (AUTO) 1 % (1-7); LYMPHOCYTES % (AUTO) 19 % (22-44); MEAN CORPUSCULAR HEMOGLOBIN 34.7 pg (27.0-34.8); MEAN CORPUSCULAR HGB CONC 34.2 g/dL (32.4-35.8); MEAN PLATELET VOLUME 8.4 fL (7.4-10.4); MONOCYTES % (AUTO) 5 % (2-9); NEUTROPHILS % (AUTO) 74 % (42-75); PLATELET COUNT 145 x10^3/uL (130-400); RED CELL DISTRIBUTION WIDTH 13.9 % (9.6-15.2)
[2021-02-02 15:32] LABS: MD NO
[2021-02-02 16:11] VITALS: BP 146/78
== END 2021-02-02 17:04 | disposition home or self-care (01) ==
LOC: ED 15:40
DX: K52.9 Noninfective gastroenteritis and colitis, unspecified (principal); R10.84 Generalized abdominal pain; K59.00 Constipation, unspecified; R11.2 Nausea with vomiting, unspecified
CPT/HCPCS: 36415; 74018; 80053; 81003; 85025; 99284

== ENCOUNTER 2021-03-02 14:22 | Emergency (ER) | payer MEDICARE, MEDICAID ==
[~2021-03-02] VITALS: Ht 172.7 cm; Wt 80.2 kg
[~2021-03-02 14:22] MED LIST changes: +NALO12.52 PO
--- NOTE | 2021-03-02 15:06 | NUR ---
VETERANS SERVICES SPECIALIST: PT AMBULATORY TO ROOM FROM [facility] WITH STEADY GAIT WITH OWN WALKER WITH GUIDE SETTER
--- NOTE | 2021-03-02 15:24 | NUR ---
PT IN IMAGING AT THIS TIME.
[2021-03-02 15:59] LABS: ALANINE AMINOTRANSFERASE 18 U/L (12-78); ALBUMIN 3.9 g/dL (3.4-5.0); ANION GAP 6 mmol/L (5-15); CALCIUM 8.6 mg/dL (8.5-10.1); CHLORIDE 105 mmol/L (98-107); CREATININE 5.15 mg/dL (0.55-1.02)
[2021-03-02 16:00] LABS: BASOPHILS % (AUTO) 1 % (0-1); EOSINOPHILS % (AUTO) 1 % (1-7); LYMPHOCYTES % (AUTO) 19 % (22-44); MEAN CORPUSCULAR HEMOGLOBIN 35.1 pg (27.0-34.8); MEAN CORPUSCULAR HGB CONC 34.1 g/dL (32.4-35.8); MEAN PLATELET VOLUME 8.4 fL (7.4-10.4); MONOCYTES % (AUTO) 8 % (2-9); NEUTROPHILS % (AUTO) 72 % (42-75); PLATELET COUNT 190 x10^3/uL (130-400); RED BLOOD COUNT 2.55 x10^6/uL (3.82-5.3); RED CELL DISTRIBUTION WIDTH 14.2 % (9.6-15.2)
[2021-03-02 16:01] LABS: ALKALINE PHOSPHATASE 74 U/L (45-117); BILIRUBIN,TOTAL 0.5 mg/dL (0.2-1.0); TOTAL PROTEIN 8.5 g/dL (6.4-8.2)
[2021-03-02 16:02] LABS: MD NO
[2021-03-02 16:07] VITALS: BP 129/35
[2021-03-02 17:01] LABS: MICROSCOPIC AUTO
== END 2021-03-02 18:02 | disposition home or self-care (01) ==
LOC: ED 17:24
DX: I12.0 Hypertensive chronic kidney disease with stage 5 chronic kidney disease or end stage renal disease (principal); N18.6 End stage renal disease; Z99.2 Dependence on renal dialysis; D53.9 Nutritional anemia, unspecified
CPT/HCPCS: 36415; 74022; 80053; 81001; 83690; 85025; 93005; 99285

== ENCOUNTER 2021-05-25 09:58 | Inpatient (IN) | payer MEDICARE, MEDICAID ==
[~2021-05-25] VITALS: Ht 172.7 cm; Wt 82.0 kg
[~2021-05-25 09:58] MED LIST changes: -DOCU-180 PO; +DOCU-192 PO
--- NOTE | 2021-05-25 10:35 | NUR ---
assumed care of pt. pt here for mulsabraple c/o. 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 pt reports that she is due for dialysis today. unable to palpate thrill or auscultate bruit. CMS of LLE intact, dorsalis pedis pulse marked pt also reports that she is having a colitis flare and that she has been having L sided abd pain and some diarrhea pt reports that she has been using medical marijuana for her pain. pt reports that if she is admitted she needs her pain controlled with morphine or dilaudid. pt sitting up on gurney in no apparent distress at this time. using her cell phone. SO at bedside awataiting MD to bedside for martell
--- NOTE | 2021-05-25 10:37 | NUR ---
pt reports that she is complaint with her anti-coagulant
--- NOTE | 2021-05-25 11:20 | NUR ---
lab at bedside to draw
[2021-05-25 11:25] LABS: BASOPHILS % (AUTO) 1 % (0-1); EOSINOPHILS % (AUTO) 2 % (1-7); LYMPHOCYTES % (AUTO) 25 % (22-44); MEAN CORPUSCULAR HEMOGLOBIN 34.5 pg (27.0-34.8); MEAN CORPUSCULAR HGB CONC 34.4 g/dL (32.4-35.8); MEAN PLATELET VOLUME 8.2 fL (7.4-10.4); MONOCYTES % (AUTO) 9 % (2-9); NEUTROPHILS % (AUTO) 62 % (42-75); PLATELET COUNT 172 x10^3/uL (130-400); RED BLOOD COUNT 2.85 x10^6/uL (3.82-5.3); RED CELL DISTRIBUTION WIDTH 14.1 % (9.6-15.2)
[2021-05-25 11:36] LABS: ALBUMIN 3.8 g/dL (3.4-5.0); ANION GAP 7 mmol/L (5-15); CALCIUM 7.9 mg/dL (8.5-10.1); CHLORIDE 102 mmol/L (98-107); CREATININE 5.16 mg/dL (0.55-1.02)
[2021-05-25] MEDS ORDERED: APIX5TAB PO (11:47)
[2021-05-25] MEDS ORDERED: SUCR1TAB PO (11:47)
--- NOTE | 2021-05-25 11:47 | NUR ---
tech at bedside for EKG pt sitting up on gurney in no apparent distress watching movie
--- NOTE | 2021-05-25 12:07 | NUR ---
no new c/o. chart up for MD recheck
--- NOTE | 2021-05-25 12:45 | NUR ---
Dr. Alicia has been to bedside for eval. pt to be admitted. pt has been updated on POC
--- NOTE | 2021-05-25 13:29 | NUR ---
pt to go to invasive procedure at 1600
[2021-05-25] MEDS ORDERED: MORPHINE SULFATE 4 MG/ML, 1ML ONE (14:00)
[2021-05-25] MEDS ORDERED: GUAIFENESIN/DM 200-20MG, 10ML UDC PO PRN (14:00)
[2021-05-25] MEDS: D5%-0.45NACL+KCL 20MEQ 1,000 ML IV SCH ×2 (14:00→22:12)
[2021-05-25] MEDS ORDERED: SODIUM CHLORIDE FLUSH 10ML SYR IVF PRN (14:00)
[2021-05-25] MEDS ORDERED: ONDANSETRON 2MG/ML, 2ML IVPush ONE (14:00)
[2021-05-25] MEDS ORDERED: OXYcodone IR 5MG TABLET PO PRN (14:00)
[2021-05-25] MEDS ORDERED: hydrALAzine 20 MG/ML, 1ML IVPush PRN (14:00)
[2021-05-25] MEDS ORDERED: MORPHINE SULFATE 4 MG/ML, 1ML IVPush PRN (14:00)
[2021-05-25] MEDS ORDERED: BACLOFEN 10 MG TABLET PO PRN (14:00)
[2021-05-25] MEDS ORDERED: ACETAMINOPHEN 325 MG TABLET PO PRN (14:00)
[2021-05-25] MEDS ORDERED: ONDANSETRON 2MG/ML, 2ML ONE (14:00)
[2021-05-25] MEDS ORDERED: ENALAPRILAT 1.25 MG/ML, 2ML IVPush PRN (14:00)
[2021-05-25] MEDS ORDERED: ONDANSETRON ODT 4 MG PO PRN (14:00)
[2021-05-25] MEDS ORDERED: BUTALB/APAP/CAFFEINE 50MG/325MG/40MG PO PRN ×2 (14:00)
[2021-05-25] MEDS ORDERED: ONDANSETRON 2MG/ML, 2ML IVPush PRN (14:00)
--- NOTE | 2021-05-25 14:22 | NUR ---
report has been called to Toy watson
[2021-05-25 15:01] VITALS: BP 132/71
[2021-05-25] MEDS ORDERED: LIDOCAINE-MPF 2% ,5ML ONE (15:44)
[2021-05-25] MEDS ORDERED: PROPOFOL 50 ML ONE ×2 (16:19→17:06)
[2021-05-25] MEDS ORDERED: MIDAZOLAM 1 MG/ML, 2ML ONE (16:38)
[2021-05-25] MEDS ORDERED: CLINDAMYCIN 150 MG/ML, 6ML ONE (16:42)
[2021-05-25] MEDS ORDERED: EPHEDRINE 50 MG/ML, 1ML ONE (16:56)
[2021-05-25] MEDS ORDERED: LABETALOL 5MG/ML, 20ML IV PRN (18:00)
[2021-05-25] MEDS ORDERED: DIPHENHYDRAMINE 50 MG/ML, 1ML IVPush PRN (18:00)
[2021-05-25] MEDS ORDERED: PROMETHAZINE 25 MG/ML, 1ML IVPush PRN (18:00)
[2021-05-25] MEDS ORDERED: OXYcodone 5 MG/5 ML ORAL.SOL UDC PO PRN (18:00)
[2021-05-25] MEDS ORDERED: HYDROmorphone 1 MG/ML, 1ML INJ IVPush PRN (18:00)
[2021-05-25] MEDS ORDERED: FENTANYL PF 100 MCG/2ML IV PRN (18:00)
[2021-05-25] MEDS ORDERED: MEPERIDINE/PF 25MG/0.5ML IVPush PRN (18:00)
[2021-05-25] MEDS ORDERED: hydrALAzine 20 MG/ML, 1ML IV PRN (18:00)
[2021-05-25] MEDS ORDERED: HALOPERIDOL 5 MG/ML IV PRN (18:00)
[2021-05-25] MEDS ORDERED: FENTANYL PF 100 MCG/2ML ONE (18:20)
[2021-05-25 19:15] VITALS: BP 139/84
[2021-05-25 20:17] VITALS: BP 123/82
[2021-05-25] MEDS ORDERED: MELATONIN 5 MG TABLET PO SCH (21:00)
[2021-05-25 21:17] VITALS: BP 128/80
[2021-05-25] MEDS: APIXABAN 5 MG TABLET PO SCH (21:58)
[2021-05-25] MEDS: morphine SULFATE 10 MG/ML, 1ML IVPush PRN (22:07)
[2021-05-26 00:17] VITALS: BP 122/81
[2021-05-26 01:17] VITALS: BP 107/71
[2021-05-26] MEDS: morphine SULFATE 10 MG/ML, 1ML IVPush PRN (02:15)
[2021-05-26 03:17] VITALS: BP 124/88
[2021-05-26 05:17] VITALS: BP 114/76
[2021-05-26 06:21] LABS: BASOPHILS % (AUTO) 0 % (0-1); EOSINOPHILS % (AUTO) 2 % (1-7); LYMPHOCYTES % (AUTO) 25 % (22-44); MEAN CORPUSCULAR HEMOGLOBIN 35.1 pg (27.0-34.8); MEAN CORPUSCULAR HGB CONC 34.3 g/dL (32.4-35.8); MEAN PLATELET VOLUME 8.6 fL (7.4-10.4); MONOCYTES % (AUTO) 9 % (2-9); NEUTROPHILS % (AUTO) 63 % (42-75); PLATELET COUNT 142 x10^3/uL (130-400); RED BLOOD COUNT 2.57 x10^6/uL (3.82-5.3); RED CELL DISTRIBUTION WIDTH 14.2 % (9.6-15.2)
[2021-05-26 06:31] LABS: ANION GAP 8 mmol/L (5-15); CALCIUM 7.4 mg/dL (8.5-10.1); CHLORIDE 108 mmol/L (98-107)
[2021-05-26 06:32] LABS: CREATININE 5.18 mg/dL (0.55-1.02)
[2021-05-26 07:26] VITALS: BP 101/70
[2021-05-26] MEDS: APIXABAN 5 MG TABLET PO SCH (08:48)
[2021-05-26] MEDS ORDERED: SENNA/DOCUSATE TABLET PO SCH (09:00)
== END 2021-05-26 12:08 | disposition home or self-care (01) | DRG 270 ==
LOC: ED 12:16 → EDIP 12:51 → 3N 14:39
PROVIDERS: ADMIT Family Medicine; ATTEND Hospitalist
PROC: 06CY3ZZ Extirpation of Matter from Lower Vein, Percutaneous Approach (ICD-10-PCS; 2021-05-25)
PROC: B51W1ZZ Fluoroscopy of Dialysis Shunt/Fistula using Low Osmolar Contrast (ICD-10-PCS; 2021-05-25)
PROC: 04CY3ZZ Extirpation of Matter from Lower Artery, Percutaneous Approach (ICD-10-PCS; principal; 2021-05-25 16:00)
DX: T82.868A Thrombosis due to vascular prosthetic devices, implants and grafts, initial encounter (principal); N18.6 End stage renal disease; I12.0 Hypertensive chronic kidney disease with stage 5 chronic kidney disease or end stage renal disease; N25.0 Renal osteodystrophy; K52.9 Noninfective gastroenteritis and colitis, unspecified; F41.9 Anxiety disorder, unspecified; F32.9 Major depressive disorder, single episode, unspecified; Y84.8 Other medical procedures as the cause of abnormal reaction of the patient, or of later complication, without mention of misadventure at the time of the procedure; Z79.01 Long term (current) use of anticoagulants; Z90.710 Acquired absence of both cervix and uterus; Z99.2 Dependence on renal dialysis; Z88.0 Allergy status to penicillin; Z88.8 Allergy status to other drugs, medicaments and biological substances; Z88.1 Allergy status to other antibiotic agents; Z88.6 Allergy status to analgesic agent; Y92.89 Other specified places as the place of occurrence of the external cause; Z20.822 Contact with and (suspected) exposure to COVID-19
CPT/HCPCS: 36415; 36902; 36905; 76937; 80048; 82040; 85025; 87635; 93005; 96374; 96375; 99285; C1725; C1894; G0378; J2250; J2405; J2704; J3010; C1751; C1757; C1769; J2270; J3480

== ENCOUNTER 2021-07-29 02:53 | Inpatient (IN) | payer MEDICARE, MEDICAID ==
[~2021-07-29] VITALS: Ht 172.7 cm; Wt 80.6 kg
[~2021-07-29 02:53] MED LIST changes: +CHOLESTER; +CHOLESTEROL PO; -DOXY100C2 PO; +DOXY100C5 PO; -OXYC-380 PO; +OXYC-501 PO; +SUCR1TAB PO
[2021-07-29 07:53] LABS: BASOPHILS % (AUTO) 1 % (0-1); EOSINOPHILS % (AUTO) 1 % (1-7); LYMPHOCYTES % (AUTO) 22 % (22-44); MEAN CORPUSCULAR HGB CONC 33.7 g/dL (32.4-35.8); MEAN PLATELET VOLUME 8.7 fL (7.4-10.4); MONOCYTES % (AUTO) 7 % (2-9); NEUTROPHILS % (AUTO) 69 % (42-75); PLATELET COUNT 178 x10^3/uL (130-400); RED BLOOD COUNT 3.55 x10^6/uL (3.82-5.3); RED CELL DISTRIBUTION WIDTH 15.9 % (9.6-15.2)
[2021-07-29 07:59] LABS: ALANINE AMINOTRANSFERASE 31 U/L (12-78); ALBUMIN 4.7 g/dL (3.4-5.0); ANION GAP 12 mmol/L (5-15); CALCIUM 8.6 mg/dL (8.5-10.1); CHLORIDE 98 mmol/L (98-107); CREATININE 4.91 mg/dL (0.55-1.02); INTERNATIONAL NORMALIZED RATIO 1.01 (0.93-1.1); PROTHROMBIN TIME 10.8 Seconds (9.6-11.5)
[2021-07-29 08:01] LABS: ALKALINE PHOSPHATASE 78 U/L (45-117); BILIRUBIN,TOTAL 0.6 mg/dL (0.2-1.0); TOTAL PROTEIN 9.9 g/dL (6.4-8.2)
--- NOTE | 2021-07-29 09:55 | NUR ---
NO ANSWER IN LOBBY
--- NOTE | 2021-07-29 10:45 | NUR ---
PT AMBULATING TO THE BATHROOM WITH STEADY GAIT AT THIS TIME.
[2021-07-29 11:28] LABS: MICROSCOPIC AUTO
[2021-07-29] MEDS ORDERED: SODIUM CHLORIDE FLUSH 10ML SYR IVF ONE (11:30)
[2021-07-29] MEDS ORDERED: SODIUM CHLORIDE 0.9% 1,000 ML IV ONE (11:30)
[2021-07-29] MEDS ORDERED: SODIUM CHLORIDE FLUSH 10ML SYR IVF PRN (11:30)
--- NOTE | 2021-07-29 11:50 | NUR ---
PT RESTING IN BED. URINE WALKED DOWN TO LAB. ORDERED COVID SWAB DONE AND WALKED TO LAB ALSO. CXR DONE. PT SITTING UP IN BED ON LAPTOP. WILL CONTINUE TO MONITOR.
--- NOTE | 2021-07-29 12:29 | NUR ---
IV STARTED. HOSPITALIST IN ROOM AT THIS TIME.
[2021-07-29] MEDS ORDERED: LIDODERM 5% PATCH TD PRN (12:30)
[2021-07-29] MEDS ORDERED: MELATONIN 5 MG TABLET PO PRN (12:30)
[2021-07-29] MEDS ORDERED: ACETAMINOPHEN 500 MG TABLET PO PRN (13:30)
[2021-07-29] MEDS: ONDANSETRON 2MG/ML, 2ML IVPush PRN ×2 (14:25→19:54)
[2021-07-29] MEDS: morphine SULFATE 10 MG/ML, 1ML IVPush PRN ×2 (14:29→19:44)
[2021-07-29 14:43] VITALS: BP 147/88
[2021-07-29] MEDS ORDERED: MIDODRINE 5 MG TABLET PO SCH ×2 (16:00)
[2021-07-29] MEDS: MIDODRINE 5 MG TABLET PO SCH (17:09)
[2021-07-29] MEDS: SUCRALFATE 1 GM TABLET PO SCH ×2 (17:09→19:54)
[2021-07-29 17:10] VITALS: BP 126/78
[2021-07-29 19:23] VITALS: BP 111/73
[2021-07-29] MEDS: CALCITRIOL 0.25 MCG CAPSULE PO SCH (19:54)
[2021-07-29] MEDS: SEVELAMER CARBONATE 800MG TAB PO SCH (19:54)
[2021-07-29] MEDS: COLESTIPOL 1 GM TABLET PO SCH (19:54)
[2021-07-29] MEDS: APIXABAN 5 MG TABLET PO SCH (19:55)
[2021-07-29] MEDS: CALCIUM CARBONATE 500 MG TABLET PO SCH (19:55)
[2021-07-30 00:06] VITALS: BP 133/80
[2021-07-30] MEDS: morphine SULFATE 10 MG/ML, 1ML IVPush PRN ×5 (00:11→22:25)
[2021-07-30] MEDS: ONDANSETRON 2MG/ML, 2ML IVPush PRN ×6 (00:11→22:24)
[2021-07-30] MEDS: SUCRALFATE 1 GM TABLET PO SCH ×4 (05:33→22:06)
[2021-07-30 06:16] LABS: BASOPHILS % (AUTO) 1 % (0-1); EOSINOPHILS % (AUTO) 3 % (1-7); LYMPHOCYTES % (AUTO) 40 % (22-44); MEAN CORPUSCULAR HEMOGLOBIN 34.3 pg (27.0-34.8); MEAN CORPUSCULAR HGB CONC 33.8 g/dL (32.4-35.8); MONOCYTES % (AUTO) 10 % (2-9); NEUTROPHILS % (AUTO) 47 % (42-75); PLATELET COUNT 147 x10^3/uL (130-400); RED BLOOD COUNT 3.09 x10^6/uL (3.82-5.3); RED CELL DISTRIBUTION WIDTH 16.4 % (9.6-15.2)
[2021-07-30 06:30] LABS: CHLORIDE 102 mmol/L (98-107)
[2021-07-30 06:40] LABS: ANION GAP 10 mmol/L (5-15); CALCIUM 8.6 mg/dL (8.5-10.1); CREATININE 5.19 mg/dL (0.55-1.02)
[2021-07-30 07:31] VITALS: BP 137/75
[2021-07-30] MEDS ORDERED: LIDOCAINE 1%, 10ML ONE (08:37)
[2021-07-30] MEDS: TEMPLATE NON-FORMULARY MED. (Naloxegol Oxalate (Movantik) 25 MG) PO SCH (09:00)
[2021-07-30] MEDS ORDERED: PROTAMINE SULFATE 10 MG/ML, 25ML ONE (10:24)
[2021-07-30] MEDS ORDERED: FLUMAZENIL 0.1 MG/1 ML, 5ML ONE (10:24)
[2021-07-30] MEDS ORDERED: FENTANYL PF 100 MCG/2ML ONE ×2 (10:24)
[2021-07-30] MEDS ORDERED: MIDAZOLAM 1 MG/ML, 5ML ONE (10:24)
[2021-07-30] MEDS ORDERED: NALOXONE 1 MG/ML, 2ML ONE (10:24)
[2021-07-30] MEDS ORDERED: HEPARIN 1,000 UNITS/ML, 10ML ONE (10:24)
[2021-07-30] MEDS: APIXABAN 5 MG TABLET PO SCH ×2 (11:30→22:07)
[2021-07-30] MEDS: PANTOPRAZOLE 40MG TABLET PO SCH (11:30)
[2021-07-30] MEDS: COLESTIPOL 1 GM TABLET PO SCH ×2 (11:33→22:06)
[2021-07-30] MEDS: CALCITRIOL 0.25 MCG CAPSULE PO SCH ×2 (11:33→22:07)
[2021-07-30] MEDS: SEVELAMER CARBONATE 800MG TAB PO SCH ×2 (11:33→22:06)
[2021-07-30] MEDS: CALCIUM CARBONATE 500 MG TABLET PO SCH ×2 (11:33→22:07)
[2021-07-30] MEDS: BUDESONIDE 3 MG CAP DR.ER PO SCH (11:33)
[2021-07-30] MEDS: MIDODRINE 5 MG TABLET PO SCH ×3 (11:34→22:07)
[2021-07-30 13:18] VITALS: BP 118/80
[2021-07-30 19:59] VITALS: BP 136/91
[2021-07-31 01:58] VITALS: BP 124/82
[2021-07-31 06:24] LABS: BASOPHILS % (AUTO) 0 % (0-1); EOSINOPHILS % (AUTO) 1 % (1-7); LYMPHOCYTES % (AUTO) 16 % (22-44); MEAN CORPUSCULAR HEMOGLOBIN 34.4 pg (27.0-34.8); MEAN CORPUSCULAR HGB CONC 34.3 g/dL (32.4-35.8); MONOCYTES % (AUTO) 10 % (2-9); NEUTROPHILS % (AUTO) 73 % (42-75); PLATELET COUNT 139 x10^3/uL (130-400); RED BLOOD COUNT 3.07 x10^6/uL (3.82-5.3); RED CELL DISTRIBUTION WIDTH 15.7 % (9.6-15.2)
[2021-07-31] MEDS: morphine SULFATE 10 MG/ML, 1ML IVPush PRN ×2 (06:32→10:43)
[2021-07-31] MEDS: SUCRALFATE 1 GM TABLET PO SCH ×2 (06:32→10:43)
[2021-07-31 06:33] LABS: ALBUMIN 3.8 g/dL (3.4-5.0); ANION GAP 6 mmol/L (5-15); CALCIUM 9.7 mg/dL (8.5-10.1); CHLORIDE 103 mmol/L (98-107)
[2021-07-31 06:37] LABS: ALANINE AMINOTRANSFERASE 27 U/L (12-78); ALKALINE PHOSPHATASE 52 U/L (45-117); BILIRUBIN,TOTAL 1.2 mg/dL (0.2-1.0); CREATININE 3.65 mg/dL (0.55-1.02); TOTAL IRON BINDING CAPACITY 209 mcg/dL (250-450); TOTAL PROTEIN 8.4 g/dL (6.4-8.2)
[2021-07-31 06:41] LABS: % IRON SATURATION 33 % (20-55); IRON LEVEL 69 mcg/dL (50-170)
[2021-07-31] MEDS: ONDANSETRON 2MG/ML, 2ML IVPush PRN ×2 (06:45→10:43)
[2021-07-31 09:00] VITALS: BP 118/78
[2021-07-31] MEDS: TEMPLATE NON-FORMULARY MED. (Naloxegol Oxalate (Movantik) 25 MG) PO SCH (09:00)
[2021-07-31] MEDS: CALCITRIOL 0.25 MCG CAPSULE PO SCH (09:08)
[2021-07-31] MEDS: MIDODRINE 5 MG TABLET PO SCH (09:08)
[2021-07-31] MEDS: CALCIUM CARBONATE 500 MG TABLET PO SCH (09:09)
[2021-07-31] MEDS: APIXABAN 5 MG TABLET PO SCH (09:09)
[2021-07-31] MEDS: COLESTIPOL 1 GM TABLET PO SCH (09:09)
[2021-07-31] MEDS: PANTOPRAZOLE 40MG TABLET PO SCH (09:09)
[2021-07-31] MEDS: SEVELAMER CARBONATE 800MG TAB PO SCH (09:09)
[2021-07-31] MEDS: BUDESONIDE 3 MG CAP DR.ER PO SCH (09:09)
[2021-08-11] MEDS ORDERED: MIDO5TAB4 PO (10:56)
[2021-08-13] MEDS ORDERED: MIDO5TAB9 PO (08:04)
== END 2021-07-31 12:24 | disposition home or self-care (01) | DRG 252 ==
LOC: ED 09:23 → EDIP 11:28 → 4NE 12:54
PROVIDERS: ADMIT Hospitalist; ATTEND Hospitalist
PROC: 04CY0ZZ Extirpation of Matter from Lower Artery, Open Approach (ICD-10-PCS; principal; 2021-07-30)
PROC: 06CY0ZZ Extirpation of Matter from Lower Vein, Open Approach (ICD-10-PCS; 2021-07-30)
PROC: 047 Lower Arteries, Dilation (ICD-10-PCS; 2021-07-30)
PROC: 067 Lower Veins, Dilation (ICD-10-PCS; 2021-07-30)
DX: T82.868A Thrombosis due to vascular prosthetic devices, implants and grafts, initial encounter (principal); N18.6 End stage renal disease; E87.1 Hypo-osmolality and hyponatremia; I12.0 Hypertensive chronic kidney disease with stage 5 chronic kidney disease or end stage renal disease; K92.2 Gastrointestinal hemorrhage, unspecified; Z99.2 Dependence on renal dialysis; D64.9 Anemia, unspecified; F12.90 Cannabis use, unspecified, uncomplicated; G89.29 Other chronic pain; I95.89 Other hypotension; K52.832 Lymphocytic colitis; M89.8X9 Other specified disorders of bone, unspecified site; N25.0 Renal osteodystrophy; F41.9 Anxiety disorder, unspecified; F32.9 Major depressive disorder, single episode, unspecified; R31.9 Hematuria, unspecified; Y83.2 Surgical operation with anastomosis, bypass or graft as the cause of abnormal reaction of the patient, or of later complication, without mention of misadventure at the time of the procedure; Z79.899 Other long term (current) drug therapy; Z79.01 Long term (current) use of anticoagulants; Z86.718 Personal history of other venous thrombosis and embolism; Z87.891 Personal history of nicotine dependence; Z90.710 Acquired absence of both cervix and uterus
CPT/HCPCS: 36415; 36902; 36905; 71045; 74018; 80048; 80053; 81001; 82306; 82728; 83540; 83550; 83690; 83970; 84100; 85014; 85018; 85025; 85610; 85730; 87635; 90935; 93005; 99156; 99157; 99285; G0378; J1644; J2250; J2405; J2720; J3010; C1751; C1757; C1769; C1894; J2270; J2310; J7030

== ENCOUNTER 2021-08-10 20:19 | Observation (INO) | payer MEDICARE, MEDICAID ==
[~2021-08-10] VITALS: Ht 172.7 cm; Wt 78.4 kg
[2021-08-13 20:03] VITALS: BP 127/73
== END 2021-08-13 20:20 | disposition home or self-care (01) ==
LOC: ED 22:33 → EDIP 22:38 → INTOOBSV 22:38 → 4NE 08-11 10:39
PROVIDERS: ADMIT Internal Medicine; ATTEND Hospitalist
DX: T82.868A Thrombosis due to vascular prosthetic devices, implants and grafts, initial encounter (principal); Z20.822 Contact with and (suspected) exposure to COVID-19; I12.0 Hypertensive chronic kidney disease with stage 5 chronic kidney disease or end stage renal disease; N18.6 End stage renal disease; D63.8 Anemia in other chronic diseases classified elsewhere; G89.29 Other chronic pain; D68.59 Other primary thrombophilia; K52.9 Noninfective gastroenteritis and colitis, unspecified; K92.2 Gastrointestinal hemorrhage, unspecified; E86.0 Dehydration; F41.8 Other specified anxiety disorders; I95.9 Hypotension, unspecified; E87.1 Hypo-osmolality and hyponatremia; K59.09 Other constipation; E87.6 Hypokalemia; N25.0 Renal osteodystrophy; M89.8X9 Other specified disorders of bone, unspecified site; F12.90 Cannabis use, unspecified, uncomplicated; Z79.01 Long term (current) use of anticoagulants; Z88.0 Allergy status to penicillin; Z90.710 Acquired absence of both cervix and uterus; Z79.899 Other long term (current) drug therapy; Z86.718 Personal history of other venous thrombosis and embolism; Z87.891 Personal history of nicotine dependence
CPT/HCPCS: 36415; 36902; 71045; 74018; 74176; 80048; 80053; 80069; 81001; 82306; 82330; 82728; 83540; 83550; 83735; 83970; 84100; 84550; 85018; 85025; 87077; 87086; 87186; 87635; 93005; 96374; 96375; 96376; 99285; C1725; C1757; C1769; C1894; G0378; J1170; J1644; J2270; J2405; J2704; J2720; J2765; J3010; J3490